=== PATIENT | female | born 1975 | race Caucasian/White ===

== ENCOUNTER 2025-04-08 11:20 | Inpatient (IN) | payer OTHER, SELFPAY ==
[2025-04-08] VITALS (7 sets, daily range): BP systolic 99–164; BP diastolic 59–91; PULSE 65–75; RESP 16–18; TEMP 36.3–36.8; O2SAT 92–98; BMI 36.6
--- NOTE | ~2025-04-08 | US_ITS ---
CLINICAL HISTORY: RUQ pain US abdomen limited Comparison: None provided Findings: The visualized pancreas is normal. Hepatic steatosis. There is no intrahepatic bile duct dilatation. The common duct is 2 mm in diameter. Gallbladder is contracted and filled with stones with rqrp-poyq-jptcum appearance. Wall is top-normal in thickness. There is no sonographic Lee sign. The right kidney is 10.9 cm in length. No ascites. IMPRESSION: Gallbladder is contracted and filled with stones with ykza-tgec-sarkig appearance. No wall thickening or sonographic Lee's sign. This document has been electronically signed by: Manuela Rodriguez MD on 04/08/2025 14:07:42
--- NOTE | ~2025-04-08 | CT_ITS ---
CLINICAL HISTORY: Abdominal pain s p duodenum resection? CT abdomen and pelvis with contrast Comparison: US - US ABDOMEN LIMITED - 04/08/25 13:24 EDT Findings: No consolidation or effusion. Hepatic steatosis. Hepatomegaly measuring 23.5 cm in the craniocaudal dimension. Gallbladder is filled with stones. No distention or biliary duct dilatation. Splenomegaly measuring 16.7 cm in the AP dimension. There is a small accessory splenule. Pancreas and adrenal glands are within normal limits. No hydronephrosis. Symmetric contrast enhancement of the kidneys. Left lower quadrant colostomy. No bowel obstruction, pneumatosis or pneumoperitoneum. No bowel wall thickening. Atrophic uterus. Urinary bladder is within normal limits. No acute fracture. IMPRESSION: 1. Hepatic steatosis with hepatosplenomegaly. 2. Cholelithiasis without gallbladder distention or biliary duct dilatation. 3. Left lower quadrant colostomy. No acute findings of the bowel. This document has been electronically signed by: Manuela Rodriguez MD on 04/08/2025 15:58:52
--- NOTE | ~2025-04-08 | MR_ITS ---
EXAMINATION: MRCP HISTORY: pancreatitis, elevated LFTs ?stones COMPARISON: Correlation is made with abdominal CT and ultrasound examinations dated 04/08/2025. TECHNIQUE: Axial gradient echo in and out of phase T1, axial T2 and fat suppressed T2, and coronal haste T2 with fat saturation images were obtained through the abdomen. 3D MRCP Reconstructed images and thick slab imaging of the biliary tree were obtained. FINDINGS: There is diffuse marked loss of signal intensity within the liver on opposed phase images, consistent with steatosis. There is no intrahepatic biliary ductal dilatation. The gallbladder is filled with calculi. There is no wall thickening or pericholecystic fluid. The common bile duct is normal in caliber. No intraluminal filling defects are identified to suggest choledocholithiasis. The spleen is enlarged. The pancreas has an unremarkable unenhanced appearance. The adrenals and kidneys are unremarkable. No ascites or retroperitoneal lymphadenopathy is identified in the upper abdomen. The visualized bones demonstrate normal marrow signal intensity. MR/MR MRCP IMPRESSION: 1. Cholelithiasis without evidence of choledocholithiasis 2. Hepatosplenomegaly and hepatic steatosis. Electronically signed by: Yaya Rabago MD 04/09/2025 01:00 PM EDT
--- NOTE | 2025-04-08 11:32 | ED_ITS ---
HPI - General Adult General Chief complaint: Abdominal Pain Stated complaint: Abd pain radiating to the back Time Seen by Provider: 04/08/25 13:38 Source: patient and family Mode of arrival: ambulatory Limitations: no limitations History of Present Illness ED Provider: DR. Cardenas HPI narrative: 49-year-old female history of rectal cancer, s/p 2 submucosal lesion removed from a duodenum via GERD done at [facility]. Patient presented with 2 days of upper abdominal pain, fullness in the upper abdomen, burping with a metallic taste burp, patient declined alcohol use, declined any trauma to the abdomen, feels nauseous with no vomiting. Colostomy tube is functioning draining both fecal material with no blood in the and gas. Related Data Allergies Allergy/AdvReac Type Severity Reaction Status Date / Time No Known Allergies Allergy Verified 04/08/25 11:35 Review of Systems 2 Review of Systems: All other systems are reviewed and are negative Constitutional: Reports as per HPI and Reports no additional constitutional complaints Eyes: Reports as per HPI and Reports no additional eye complaints Reports system reviewed and no additional complaints, except as documented Cardiovascular: Reports as per HPI and Reports no additional cardiovascular complaints Respiratory: Reports as per HPI and Reports no additional respiratory complaints Gastrointestinal: Reports as per HPI and Reports no additional gastrointestinal complaints Genitourinary: Reports no additional female genitourinary complaints Musculoskeletal: Reports no additional musculoskeletal complaints Skin/Breast: Reports system reviewed and no additional complaints, except as docu Psychiatric: Reports no additional psychiatric complaints Endocrine: Reports no additional endocrine complaints Hematologic/Lymphatic: Reports no additional hematologic/lymphatic complaints Allergic/Immunologic: Reports no additional allergic/immunologic complaints Reports system reviewed and no additional complaints, except as documented and Reports Abnormal speech present [facility] Social History Social History Advance Directives: No Advance Directives Information Provided: Yes Physical Exam ED Vital Signs: Vital Signs - 24 hr 04/08/25 11:32 04/08/25 14:19 04/08/25 14:37 Temperature 97.3 F 97.8 F Pulse Rate 75 74 Respiratory Rate 18 16 17 Blood Pressure 164/91 H 135/85 Pulse Oximetry 98 94 Oxygen Delivery Method Room Air Room Air BMI result Body Mass Index 36.6 Vital signs have been reviewed and appear to be correct. Blood pressure elevated. Heart rate normal. Respiratory rate normal. Temperature normal. Oxygen saturation normal. Appearance: Alert. Oriented X3. No acute distress. Head: Normal external exam. Normocephalic. Atraumatic. No Roth signs noted. No raccoon eyes noted Eyes: PERRLA. EOMI. Conjunctiva and sclera normal. Eyelids normal. ENT: TM's Normal. Pharynx normal. Uvula midline. Moist mucous membranes. No trismus noted. No drooling noted. No muffled voice noted. Neck: Normal inspection. Neck supple. FROM. No adenopathy. Thyroid Normal. No meningeal signs. No neck mass noted. CVS: Normal heart rate and rhythm. Heart sound normal. No murmurs noted. Pulses normal throughout. Respiratory: No respiratory distress. Painless inspiration. Breath sounds normal. No wheezes/rales/rhonchi noted. Chest nontender. No accessory muscle usage noted or decreased air movement noted. Abdomen: Soft and nontender. Bowel sounds normal in all 4 quadrants. No distention noted. No organomegaly noted. No visible injury noted. Back: No CVA tenderness. Full range of motion noted. Skin: Skin warm and dry. Normal skin color. Normal skin turgor. No rashes/lesions/lacerations noted. Extremities: No lower extremity edema. Extremities exhibit normal range of motion. Extremities nontender. Neuro: Oriented X 3. Cranial nerve exam: II-XII are grossly intact No motor deficit. No sensory deficit. Reflexes normal. Course Course Course Narrative: This is a rapid medical exam performed by Santi Pepper NP: Additional HPI, ROS, PE not included below will be deferred to primary provider. Patient is a 49-year-old female presenting to the ED with complaint of abdominal pain following a recent duodenal resection done at [facility] on 03/28. notes that she had clips placed during surgery, has a card. Also has ostomy, states stool has been foul smelling and looser than normal. Complaining of nausea, pain. Denies any hematochezia or melena in ostomy, denies vomiting. States pain is to RUQ as well as back but is not radiating. 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 Plan: labs, UA, will defer imaging to primary provider Reevaluation(s) Reevaluation #1: 1. Nonalcoholic pancreatitis. 2. Cholelithiasis without acute cholecystitis or evidence of choledocholithiasis. 3. Admit for IV hydration, pain control. 4. CT abdomen and pelvis reveals stranding around the pancreas indicated for acute pancreatitis, await for official radiology reading on the CT. Time: 15:48 Medications Administered Discontinued Medications Generic Name Dose Route Start Last Admin Trade Name Freq PRN Reason Stop Dose Admin Al Hydroxide/Mg Hydroxide 30 ml 04/08/25 14:08 04/08/25 14:35 Magnesium Hydrox/Alum Hydrox 30 Ml Oral.Susp PO 04/08/25 14:09 30 ml ONCE ONE Administration Famotidine 20 mg 04/08/25 14:08 04/08/25 14:36 Famotidine/Pf 20 Mg/2 Ml Vial IVPUSH 04/08/25 14:09 20 mg ONCE ONE Administration Hydromorphone HCl 1 mg 04/08/25 14:08 04/08/25 14:37 Hydromorphone Hcl 1 Mg/Ml Syringe IVPUSH 04/08/25 14:09 1 mg ONCE ONE Administration Protocol Lactated Ringer's 1,000 mls @ 999 mls/hr 04/08/25 14:15 04/08/25 14:36 Lr IV 04/08/25 15:15 999 mls/hr .Q1H1M WALT Administration Iohexol 100 ml 04/08/25 14:43 04/08/25 14:43 Iohexol 350 Mg/Ml 100 Ml Infus..Btl IV 04/08/25 14:44 85 ml ONCE ONE Administration Ondansetron HCl 4 mg 04/08/25 14:08 04/08/25 14:36 Ondansetron Hcl 4 Mg/2 Ml Vial IVPUSH 04/08/25 14:09 4 mg ONCE ONE Administration Medical Decision Making Lab Data 04/08/25 12:04 04/08/25 12:04 Labs: Lab Results 04/08/25 04/08/25 Range/Units 12:04 14:29 WBC 3.5 L (4.8-10.8) X10*3/uL RBC 5.20 (4.20-5.50) X10*6/uL Hgb 12.2 (12.0-16.0) g/dl Hct 37.1 (37.0-47.0) % MCV 71.3 L (80.0-98.0) fL MCH 23.5 L (27.0-33.0) pg MCHC 32.9 (31.0-35.0) g/dl RDW 15.6 (11.0-16.0) % Plt Count 167 (160-400) X10*3/uL MPV 9.0 L (9.4-12.3) fL Immature Gran % (Auto) 0.3 (0.0-0.4) % Neut % (Auto) 83.6 H (45-73) % Lymph % (Auto) 6.9 L (20-40) % [place] % (Auto) 7.2 (2-11) % Eos % (Auto) 1.4 (0-4) % Baso % (Auto) 0.6 (0-2) % Lymph # (Auto) 0.2 L (1.2-4.9) X10*3/uL [place] # (Auto) 0.3 (0.1-1.2) X10*3/uL Eos # (Auto) 0.1 (0.0-0.4) X10*3/uL Baso # (Auto) 0.0 (0.0-0.2) X10*3/uL Abs Immat Gran (auto) 0.01 (0.00-0.03) X10*3/uL Absolute Neuts (auto) 2.9 (2.0-8.3) x10*3/uL Absolute Nucleated RBC 0.000 (0.0-0.012) X10*3/uL Nucleated RBC % (auto) 0.0 (0.0-0.2) /100WBC PT 11.6 (10.9-12.4) SEC INR 1.0 (0.9-1.1) Sodium 141 (135-145) mmol/L Potassium 3.8 (3.3-5.1) mmol/L Chloride 105 (96-108) mmol/L Carbon Dioxide 27 (22-29) mmol/L Anion Gap 13 (12-20) BUN 8 L (9-16) mg/dL Creatinine 0.60 (0.5-1.4) mg/dL Estim Creat Clear Calc 140.4 Estimated GFR > 60 Random Glucose 95 (60-115) mg/dL Lactic Acid 1.0 (0.5-2.0) mmol/L Calcium 10.0 (8.4-10.2) mg/dL Magnesium 2.1 (1.6-2.6) mg/dL Total Bilirubin 2.8 H (0.0-1.0) mg/dL AST 709 H (5-31) U/L ALT 480 H (0-31) U/L Alkaline Phosphatase 282 H (39-117) U/L Total Protein 7.9 (6.5-8.0) g/dL Albumin 4.9 (3.5-5.0) g/dL Triglycerides 85 (<150) mg/dL Cholesterol 167 (<200) mg/dL LDL Cholesterol, Calc 104 H (<100) mg/dL HDL Cholesterol 46 (>40) mg/dL Lipase 2540 H (8-78) U/L Urine Color Dark Yellow Urine Appearance Clear Urine pH 5.5 (5.0-9.0) Ur Specific [place] 1.015 (1.005-1.025) Urine Protein Negative (Neg-Trace) mg/dL Urine Glucose (UA) Negative (Negative) mg/dL Urine Ketones Negative (Negative) mg/dL Urine Blood Negative (Negative) Urine Nitrite Negative (Negative) Ur Leukocyte Esterase Trace H (Negative) Urine RBC 0-2 (0-2) /HPF Urine WBC 0-5 (0-5) /HPF Ur Squamous Epith Cells 0-2 (0-2) /HPF Urine Bacteria None Seen (None Seen) Hyaline Casts 0-2 (0-2) /LPF Urine Test NEGATIVE (NEGATIVE) Discharge Plan Discharge Clinical Impression: Acute pancreatitis Patient Disposition: Admitted As Inpatient Print Language: Norwegian
[2025-04-08 12:10] LABS: MANUAL DIFF FLAG NO
[2025-04-08 12:12] LABS: Appearance Urine Clear; Glucose Urine UA Negative (Negative); Hematocrit 37.1 % (37.0-47.0); Hemoglobin 12.2 g/dl (12.0-16.0); Imm Gran Abs Auto 0.01 X10*3/uL (0.00-0.03); Imm Gran Pct Auto 0.3 % (0.0-0.4); Lymphocytes Absolute Auto 0.2 X10*3/uL (1.2-4.9); Mean Corpuscular HGB Conc 32.9 g/dl (31.0-35.0); Mean Corpuscular Hemoglobin 23.5 pg (27.0-33.0); Mean Corpuscular Volume 71.3 fL (80.0-98.0); NRBC Abs Auto 0.000 X10*3/uL (0.0-0.012); NRBC Pct Auto 0.0 /100WBC (0.0-0.2); PH 5.5 (5.0-9.0); Platelet Count 167 X10*3/uL (160-400); Red Blood Count 5.20 X10*6/uL (4.20-5.50); Specific Gravity - Urine 1.015 (1.005-1.025); UMIC TRIGGER UACC YES; White Blood Count 3.5 X10*3/uL (4.8-10.8)
[2025-04-08 12:17] LABS: INTERNATIONAL NORM RATIO 1.0 (0.9-1.1); Prothrombin Time 11.6 SEC (10.9-12.4)
[2025-04-08 12:34] LABS: Alanine Aminotransferase 480 U/L (0-31); Albumin Level 4.9 g/dL (3.5-5.0); Alkaline Phosphatase 282 U/L (39-117); Anion Gap 13 (12-20); Aspartate Amino Transferase 709 U/L (5-31); Blood Urea Nitrogen 8 mg/dL (9-16); Calcium 10.0 mg/dL (8.4-10.2); Carbon Dioxide 27 mmol/L (22-29); Chloride 105 mmol/L (96-108); Creatinine Clr Calc Pharmacy 140.4; Estimated Glomerular Filt Rate > 60; Magnesium 2.1 mg/dL (1.6-2.6); Potassium 3.8 mmol/L (3.3-5.1); Sodium 141 mmol/L (135-145); Total Protein 7.9 g/dL (6.5-8.0)
[2025-04-08 12:47] LABS: Lipase 2540 U/L (8-78)
[2025-04-08 13:49] LABS: UPreg QC Valid YES
[2025-04-08] MEDS: Magnesium Hydrox/Alum Hydrox 30 ML ORAL.SUSP PO (14:35)
[2025-04-08] MEDS: Lactated Ringers 1,000 ML 999 ML IV (14:36)
--- OUTSIDE RECORDS SUMMARY | 2025-04-08 14:39 | XMS_ITS | Clinical Summary ---
Author Organization [facility] Address [address] [place] [address] Phone Care Team Providers Care Relief Map Modeler Name Role Phone Charly Garcia MD Primary Care Provid er Carla Sibley MD [facility] [phone] Allergies Active Allergy Reactions Criticality Noted Date Comments Other 02/07/2007 Medications sertraline (ZOLOFT) 50 MG tablet 100 mg. SERTRALINE 50 MG TABLET; Dose: 75 MG; Form: Take 1.5 TABLET; Route: PO; Frequency: QD; Directions: Not available; Details: Dispense: Tablet(s); Taking; Status: Active; Source: CARLA SIBLEY M.D.; Date: 08/30/2012 3 Active cetirizine (ZYRTEC) 10 MG tablet ZYRTEC (CETIRIZINE) 10 MG TABLET; Dose: 10 MG; Form: Take 1 TABLET; Route: PO; Frequency: QD; Directions: Not available; Details: Dispense: Tablet(s); Taking; Status: Active; Source: CARLA SIBLEY M.D.; Date: 08/30/2012 3 Active hydrOXYchloroQU INE (PLAQUENIL) 200 mg tablet TAKE 1 TABLET TWICE A DAY (SCHEDULE APPOINTMENT FOR FURTHER REFILLS) 60 tablet 1 Active cholecalciferol , vitamin D3, (VITAMIN D3) 25 mcg (1,000 unit) capsule 0 Active cyanocobalamin, vitamin B-12, 1,000 mcg/mL Kit 0 Active folic acid 0.8 mg Cap 0 Active cetirizine (ZYRTEC) 10 MG tablet Take 10 mg by mouth. Active hydroxychloroqu ine (PLAQUENIL) 200 mg tablet Take 200 mg by mouth. Active omeprazole (PRILOSEC) 20 MG capsule Take 1 capsule (20 mg total) by mouth 2 (two) times a day. 120 capsule 5 05/27/20 25 Active Active Problems Problem Noted Date Diagnosed Date Adenocarcinoma of rectum 01/01/2025 Malignant tumor of rectum 03/07/2014 Overview (09/08/2014): Rectal cancer Carpal tunnel syndrome 01/27/2013 Overview (09/08/2014): Carpal tunnel syndrome Disorder of patellofemoral joint 01/27/2013 Overview (09/08/2014): Patellofemoral disorder Uncoded ? Systemic lupus erythematosus 3 Overview (09/08/2014): ? Systemic lupus erythematosus Generalized osteoarthrosis of hand 05/10/2007 Overview (01/01/2025): Sees Dr Young, rheum Off arthritis meds during IMO update Rheumatoid arthritis 05/10/2007 Overview (01/01/2025): Sees Dr Young, rheum Off arthritis meds during IM update Allergic rhinitis 12/03/2005 Depressive disorder 12/03/2005 Overview (01/01/2025): DEPRESSION/anxiety Encounters Date Type Department Care Team Description 5 11:45 AM EDT - 5 12:45 PM EDT Surgery [facility] Endoscopy Department [address] [place] [address] Margarita Gonzales MD, PhD ESOPHAGOGASTRODUODENOSCOPY WITH ENDOSCOPIC MUCOSAL RESECTION Duodenal adenoma 5 11:38 AM EDT Anesthesia Event [facility] Endoscopy Department [address] [place] [address] Eddie Jc MD Song, Margaret, ARIADNA 5 10:18 AM EDT - 5 1:02 PM EDT Hospital Encounter [facility] Endoscopy Department [address] [place] [address] aMrgarita Gonzales MD, PhD Discharge Disposition: Home or Self Care 5 Orders Only [address] [address] Margarita Gonzales MD, PhD 5 Procedure Pass [facility] Endoscopy Department [address] [place] [phone] [address] [address] Miracle Parnell PA-C 5 Orders Only [address] [address] Miracle Parnell PA-C Duodenal adenoma (Primary Dx) 5 4:13 PM EDT Anesthesia Event [facility] Endoscopy Department [address] [place] [address] Prema Austin MD, PhD 5 3:15 PM EDT - 5 4:00 PM EDT Surgery [facility] Endoscopy Department [address] [place] [address] Andrew Smalls MD, PhD UPPER ENDOSCOPIC ULTRASOUND- duodenal adenoma asssess for ESD dr gonzales to come in room 5 12:52 PM EDT - 5 5:31 PM EDT Hospital Encounter [facility] Endoscopy Department [address] [place] [address] Camilo Godinez MD Discharge Disposition: Home or Self Care 5 Procedure Pass [facility] Endoscopy Department [address] [place] [address] from Last 3 Months Immunizations Immunization Administration Dates Next Due Influenza, Unspecified Formulation 06/25(Deferred: Other - , Ordered By: [id number]),05/03/2013,03/30/2012 Pneumococcal, Unspecified Formulation (Deferred: Other - , Ordered By: [id number]) Social History Tobacco Use Types Packs/Day Years Used Date Smoking Tobacco: Never Smokeless Tobacco: Never Alcohol Use Standard Drinks/Week Comments Yes 0 (1 standard drink = 0.6 oz pur e alcohol) Education Answer Date Recorded Are you interested in more education? Not on hilton e 11/13/2022 Are you concerned about learning? Not on file 11/13/2022 No 11/13/2022 No 11/13/2022 Digital Access Answer Date Recorded No 12/13/2022 No 12/13/2022 Reliable internet access at home? Not on file 12/13/2022 Device with a working camera? Not on file Comments No Sex and Gender Information Value Date Recorded Sex Assigned at Female 06/01/2019 7:45 AM EST Legal Sex Female 11:30 AM EDT Gender Identity Female 06/01/2019 7:45 AM EST Sexual Orientation Straight 06/01/2019 7: 45 AM EST Last Filed Vital Signs Vital Sign Reading Time Taken Comments Blood Pressure 133/83 03/28/2025 12:50 PM EDT Pulse 72 03/28/2025 12:55 PM EDT Temperature 36.2 C (97.1 F) 03/28/2025 12:26 PM EDT Respiratory Rate 11 03/28/2025 12:45 PM EDT Oxygen Saturation 94% 03/28/2025 12:50 PM EDT Inhaled Oxygen Concentration - - Weight 104.3 kg (230 lb) 01/18/2025 2:50 PM EDT Height 167.6 cm (5' 6 ) 01/18/2025 2:50 PM EDT Body Mass Index 37.12 01/18/2025 2:50 PM EDT Plan of Treatment Health Maintenance Due Date Last Done Comments LIPID PANEL 1977 DEPRESSION SCREENING 1989 HIV ONE-TIME SCREENING (18-65 YEARS) 1995 PNEUMOCOCCAL VACCINES (0-49 years) (1 of 2 - PCV) 1996 PAP SMEAR 1998 MAMMOGRAM 2017 SCREENING FOR DIABETES 03/09/2020 03/09/2017 COLOGUARD 2022 COLONOSCOPY 2022 COLORECTAL CANCER SCREENING 2022 FIT TEST 2022 FOBT 2022 SIGMOIDOSCOPY 2022 VIRTUAL COLONOSCOPY 2022 INFLUENZA VACCINE (#1) 2025 , 05/11/2023, 05/13/2022, Additional history exists COVID-19 VACCINE ( season) 2025 07/26/2021, 08/23/2020, 08/02/2020 Adult Td,Tdap Booster 06/11/2030 06/11/2020, 006 HEPATITIS C SCREENING Completed 01/04/2017 SMOKING STATUS SCREENING (Once After 26 Yrs) Completed 03/28/2025 HEPATITIS A VACCINES Aged Out No long er eligible based on patient's age to complete this topic HIB VACCINES Aged Out No longer eligi ble based on patient's age to complete this topic MENINGOCOCCAL VACCINES (ACWY) Aged Out No longer eligible based on patient's age to complete this topic MENINGOCOCCAL VACCINES (B) Aged Out N o longer eligible based on patient's age to complete this topic Medical Devices Implanted Type Area Open Winder Device Identifier Shelf Expiration Date Model / Serial / Lot Clip Hemostasis 360deg 235cm Resolution 360 Latex Free 2.8mm Channel Bx/20ea - [id number] Implanted:Qty: 2 on 03/28/2025 by Margarita Gonzales MD, PhD at [facility] [employer] [id number] 01/09/2028 [id number] / [id number] / [id number] Procedures Procedure Name Priority Date/Time Associated Diagnosis Comments ENDOSCOPY PROCEDURE 03/28/2025 1 1:24 AM EDT MA EGD TRANSORAL ENDOSCOPIC MUCOSAL RESECTION 03/28/2025 11:23 AM EDT Duodenal adenoma Special Needs 01/22 prep sent to pg.KATIA AH MAC 75F Same day ANATOMIC PATHOLOGY Routine 03/28/2025 12 :00 AM EDT OUTSIDE PROCEDURE 03/23/2025 MA EDG US EXAM SURGICAL ALTER STOM DUODENUM/JEJUNUM 01/18/2025 4:17 PM EDT Duodenal adenoma Special Needs 7/2 pt confirmed.KATIA 01/01 prep sent to [facility] on day is on campus he is to go in room, MAC 75F same day ENDOSCOPY PROCEDURE 01/18/2025 9 :54 AM EDT ANATOMIC PATHOLOGY Routine 01/18/2025 12 :00 AM EDT OUTSIDE PATHOLOGY 01/11/2025 OUTSIDE PROCEDURE 01/11/2025 OUTSIDE PATHOLOGY 01/09/2025 OUTSIDE PROCEDURE 01/09/2025 HEPATITIS C ANTIBODY, QUALITATIVE Routine 01/04/2017 11:08 AM EDT Encounter for long-term (current) use of high-risk medication from Last 3 Months or Most Recently Relevant to Health Maintenance Results * ENDOSCOPY PROCEDURE (03/28/2025 11:24 AM EDT) 03/28/2025 11:2 4 AM EDT Narrative Transcriptions Margarita Gonzales MD, PhD - 03/28/2025 11:24 AM EDT [facility] Gastroenterology Patient Name: Shellie Avila Procedure Date: 03/28/2025 11:24 AM Date of : 1975 Admit Type: Outpatient Age: 49 Room: 6 Gender: Female Note Status: Finalized Attending MD: MARGARITA GONZALES MD, Instrument Name: [id number] Procedure: Upper GI endoscopy with Endoscopic Mucosal Resection (EMR) Indications: Therapeutic procedure, For therapy of precancerous lesions of the duodenum Patient Profile: This is a 49 year old female. Refer to note in patient chart for documentation of history and physical. Providers: MARGARITA GONZALES MD, Jazmyne Lee RN Referring MD: Dwayne Brady (Referring MD) Medicines: Monitored Anesthesia Care Complications: No immediate complications. Procedure: Pre-Anesthesia Assessment: - Prior to the procedure, a History and Physical was performed, and patient medications, allergies and sensitivities were reviewed. The patient's tolerance of previous anesthesia was reviewed. - The risks and benefits of the procedure and the sedation options and risks were discussed with the patient. All questions were answered and informed consent was obtained. - ASA Grade Assessment: I - A normal, healthy patient. After informed consent was obtained, the endoscope was passed under direct vision. Throughout the procedure, the patient's blood pressure, pulse, and oxygen saturations were monitored continuously. The Endoscope was introduced through the mouth, and advanced to the third part of duodenum. The upper GI endoscopy was accomplished without difficulty. The patient tolerated the procedure well. Findings: The examined esophagus was normal. The entire examined stomach was normal. A single 35 mm sessile polyp with no bleeding was found in the second portion of the duodenum. Preparations were made for mucosal resection (EMR). BlueBoost was injected to raise the lesion. Snare mucosal resection was performed. Resection and retrieval were complete. Resected tissue margins were examined and clear of polyp tissue. Coagulation for bleeding prevention using Ensure Grasper was successful. Coagulation for tissue destruction using argon plasma at 0.8 liters/minute and 30 stark was successful. To prevent bleeding after mucosal resection, two hemostatic clips were successfully placed (MR conditional). Clip digital account director: [employer]. There was no bleeding at the end of the procedure. Estimated blood loss was minimal. Impression: - Normal esophagus. - Normal stomach. - A single duodenal polyp. Resected and retrieved. Treated with argon plasma coagulation (APC). Clips (MR conditional) were placed. Clip digital account director: [employer]. - Mucosal resection (EMR) was performed. Resection and retrieval were complete. Recommendation: - Clear liquid diet today. - Full liquid diet for 1 day. - Soft diet for 5 days. - Use Prilosec (omeprazole) 20 mg PO BID for 8 weeks. Attending Participation: I personally performed the entire procedure. Margarita Gonzales MD [id number] MARGARITA GONZALES MD 03/28/2025 12:29:11 PM Number of Addenda: 0 Note Initiated On: 03/28/2025 11:24 AM us Dwayne Brady MD GI PROCEDURE ORDERABLES Final R esult * Anatomic Pathology (03/28/2025 12:00 AM EDT) Only the most recent of2 resultswithin the time period is included. 03/28/2025 03/29/2025 [facility] - 04/03/2025 2:11 PM EDT CASE: [id number] PATIENT: SHELLIE AVILA Date: 1975 Sex: Female [facility] Department of Pathology [address] [place], [place] [address]IA License No.: [id number] Time Study Technician: Dr. Moo Mcdowell M.D., Ph.D. Physician: MARGARITA GONZALES MD, PhD Procedure Date: 03/28/2025 Resident: Noemi Cristina MD Pathologist: Lalit Dupree M.D., Ph.D. PATHOLOGIC DIAGNOSIS: A. DUODENAL POLYP EMR: Fragments of duodenal adenoma. CLINICAL DATA: History: Duodenal adenoma. Operation: Esophagogastroduodenoscopy with endoscopic mucosal resection duodenal adenoma. Operative Findings: None provided. Clinical Diagnosis: None provided. TISSUE SUBMITTED: A/1. Duodenal polyp EMR GROSS DESCRIPTION: The specimen is received in 1 part, labeled with the patient's name and medical record number. Part A received in formalin labeled Duodenal polyp EMR consists of an aggregate of irregular mary-brown soft tissue (3.5 x 2.2 x 0.6 cm). The specimen is submitted in toto. A1-A3: 4 pieces Dictated by: Sussy Riggins By his/her signature below, the senior physician certifies that he/she personally conducted a microscopic examination ( gross only exam if so stated) of the described specimen(s) and rendered or confirmed the diagnosis(es) related thereto. Final Diagnosis by Lalit Dupree M.D., Ph.D., Electronically signed on Thursday April 03, 2025 at 02:11:04PM us Margarita Gonzales MD, PhD PATHOLOGY ORDERABLES Fin al Result [facility] [address] [place] [address] * Outside Procedure (03/23/2025) us Scanning Interface Provider PROCEDURE/MINOR SURG ICAL PERFORMABLES Final Result * ENDOSCOPY PROCEDURE (01/18/2025 9:54 AM EDT) 01/18/2025 9:54 AM EDT Narrative Transcriptions Andrew Smalls MD, PhD - 01/18/2025 9:54 AM EDT [facility] Gastroenterology Patient Name: Shellie Avila Procedure Date: 01/18/2025 9:54 AM Date of : 1975 Admit Type: Outpatient Age: 49 Room: 7 Gender: Female Note Status: Finalized Attending MD: ANDREW SMALLS MD, Instrument Name: [id number] Procedure: Upper EUS Indications: Duodenal mucosal mass/polyp found on endoscopy Patient Profile: This is a 49 year old female. Refer to note in patient chart for documentation of history and physical. Providers: VIVIEN MCKINLEY RN, ANDREW SMALLS MD Referring MD: Dwayne Brady (Referring MD) Medicines: Monitored Anesthesia Care Complications: No immediate complications. Estimated blood loss: Minimal. Procedure: Pre-Anesthesia Assessment: - See the [facility] pre-procedure note for documentation of the pre-procedure assessment. After obtaining informed consent, the endoscope was passed under direct vision. Throughout the procedure, the patient's blood pressure, pulse, and oxygen saturations were monitored continuously. The Endosonoscope was introduced through the mouth, and advanced to the second part of duodenum. The upper EUS was accomplished without difficulty. The patient tolerated the procedure well. Findings: ENDOSCOPIC FINDING: : The examined esophagus was endoscopically normal. The entire examined stomach was endoscopically normal. A single 50 mm semi-pedunculated polypoid leison with no bleeding was found in the second portion of the duodenum. Biopsies were taken with a cold forceps for histology. ENDOSONOGRAPHIC FINDING: : The esophagus, stomach and duodenum were examined endosonographically. A hypoechoic pedunculated mass was identified endosonographically in the second portion of the duodenum. The mass measured 50 mm by 9 mm in maximal cross-sectional diameter. The lesion extended from the mucosa to the muscularis mucosa. The endosonographic borders were well-defined. There was sonographic evidence suggesting invasion into the deep mucosa (Layer 2). An intact interface was seen between the mass and the adjacent structures suggesting a lack of invasion. No lymph nodes were visualized in the lower paraesophageal mediastinum (level 8L), gastrohepatic ligament (level 18), celiac region (level 20) and perigastric region. Impression: - Normal esophagus. - Normal stomach. - A single duodenal semi-pedunculated polypoid lesion. Biopsied. On EUS this appeared this did not invade into the submucosa (Layer 3) or muscular layer (Layer 4). - No lymph nodes were visualized in the lower paraesophageal mediastinum (level 8L), gastrohepatic ligament (level 18), celiac region (level 20) and perigastric region. Recommendation: - Await path results. - Schedule endoscopic resection with Dr. Gonzales who was present during this case. Attending Participation: I personally performed the entire procedure. ANDREW SMALLS MD 01/18/2025 4:59:13 PM Number of Addenda: 0 Note Initiated On: 01/18/2025 9:54 AM us Dwayne Brady MD GI PROCEDURE ORDERABLES Final R esult * Outside Procedure (01/11/2025) us Scanning Interface Provider PROCEDURE/MINOR SURG ICAL PERFORMABLES Final Result * Outside Pathology (01/11/2025) Only the most recent of2 resultswithin the time period is included. us Scanning Interface Provider PATHOLOGY ORDERABLES Final Result * Outside Procedure (01/09/2025) us Scanning Interface Provider PROCEDURE/MINOR SURG ICAL PERFORMABLES Final Result * Hepatitis C antibody, qualitative (01/04/2017 11:08 AM EDT) Pathologist [facility] HCV Nonreactive Nonreactive [facility] Blood 01/04/2017 11:0 8 AM EDT 01/04/2017 12:33 PM EDT us Carla Sibley MD LAB BLOOD ORDERABLES Final Result [facility] [address] [place] [address] from Last 3 Months or Most Recently Relevant to Health Maintenance Insurance [address] [place], [place] [address] [place], [place] [address] [facility] Advance Directives For more information, please contact: [phone] (9AM - 5PM [facility], Wednesday-Wednesday) Documents on File Type Date Recorded Patient Jumbo Operator Expl anation Serious Illness Care 05/13/2015 10:29 AM communication from [facility] Care Teams Relief Map Modeler Relationship Specialty Start Date End Date Charly Garcia MD [address] [place] [phone] PCP - General 11/22/14 Carla Sibley MD [address] [place] [address] [email or web address] Historical LMR Provider 12/02/14 Additional Source Comments The information contained in this document represents components of the legal health record. It is not the complete legal health record.[facility]
--- OUTSIDE RECORDS SUMMARY | 2025-04-08 14:39 | XMS_ITS | Encounter Summary ---
Author Organization [facility] Address [address] [place] [address] Care Team Providers Care Cross Enterprise Integrator Name Role Phone Charly Garcia MD Primary Care Provider [phone] Encounter Details Date Type Department Care Team (Late st Contact Info) Description 11/30/[address] [facility] - Main Lab [address] [facility] [place] [phone] Andrea Guillen MD [address] [facility] [address] [place] [address] Iron deficiency anemia, unspecified Social History Tobacco Use Types Packs/Day Years Used Date Smoking Tobacco: Never Smokeless Tobacco: Never Alcohol Use Standard Drinks/Week Comments No 0 (1 standard drink = 0.6 oz pur e alcohol) Comments Unknown Sex and Gender Information Value Date Recorded Sex Assigned at Female 07/25/2024 9:01 AM EST Legal Sex Female 12:43 AM EST Gender Identity Female 07/25/2024 9:01 AM EST Sexual Orientation Straight 07/25/2024 9: 01 AM EST documented as of this encounter Plan of Treatment Not on file documented as of this encounter Procedures Procedure Name Priority Date/Time Associated Diagnosis Comments TISSUE EXAM Routine 11/30/2024 Iron deficiency anemia, unspecified documented in this encounter Results * Tissue Exam (11/30/2024) Final Diagnosis A. Small Intestine, Duodenum, second and third part biopsy: - Duodenal mucosa with preserved villi and no specific pathologic changes. - Negative for increased intraepithelial lymphocytes. B. Small Intestine, Duodenum, second part biopsy: - Fragments of tubular adenoma. Note: Multiple additional deeper levels were examined. Please clinically correlate if biopsy is inventory representative of lesion. No carcinoma is identified. Case was reviewed intradepartmental case conference with consensus agreement in the above diagnosis. 12/04/2024 4:22 PM EDT [facility] Clinical Information Iron deficiency anemia R/O Celiac sprue Mass 12/04/2024 4:22 PM EDT [facility] Gross Description A. Small Intestine, Duodenum, second and third part biopsy: Labeled duodenum-second part, third part biopsy . Received in formalin are three soft to rubbery, mary-brown tissue fragments ranging from 0.15 cm to 0.6 cm, in greatest diameters, which are wrapped in paper and submitted in toto in one cassette, three pieces, multiple levels. B. Small Intestine, Duodenum, second part biopsy: Labeled duodenum-second part biopsy mass . Received in formalin is a 1.0 x 0.6 x 0.2 cm aggregate of soft to rubbery, mary-brown tissue fragments, with minimal clotted blood attached, which is wrapped in paper and submitted in toto in one cassette, multiple pieces, multiple levels. Please note: Small tissue fragments may not survive processing. dvb/DG 12/04/2024 4:22 PM EDT [facility] Disclaimer Unless otherwise specified, all tissue is 10% NB formalin fixed and paraffin embedded. 12/04/2024 4:22 PM EDT [facility] Tissue Duodenal structure / Unknown 11/30/2024 11/30/2024 6:15 PM EDT Tissue specimen (specimen) Duodenal structure / Unknown 11/30/2024 11/30/2024 6:15 PM EDT us Andrea Guillen MD LAB PATHOLOGY ORDERABLES Marilu ho Result [facility] [address] [place] [address], documented in this encounter Visit Diagnoses Diagnosis Iron deficiency anemia, unspecified documented in this encounter Care Teams Cross Enterprise Integrator Relationship Specialty Start Date End Date Charly Garcia MD [address] [place] [phone] PCP - General Internal Medicine 07/25/24 documented as of this encounter
--- OUTSIDE RECORDS SUMMARY | 2025-04-08 14:39 | XMS_ITS | Encounter Summary ---
Author Organization [facility] Address [address] [facility] [address] [place] [address] Phone Care Team Providers Care Western Philosophy Professor Name Role Phone Charly Garcia MD Primary Care Provid er Nicolasa Stuart MD Unavailable [phone] Encounter Details Date Type Department Care Team (Late st Contact Info) Description 01/18/2025 Procedure Pass [facility] Endoscopy Department [address] [place] [address] [phone] Social History Tobacco Use Types Packs/Day Years Used Date Smoking Tobacco: Never Smokeless Tobacco: Never Alcohol Use Standard Drinks/Week Comments Never 0 (1 standard drink = 0.6 oz [...] Orientation Straight 06/01/2019 7: 45 AM EST documented as of this encounter Plan of Treatment Not on file documented as of this encounter Visit Diagnoses Not on filedocumented in this encounter Care Teams Western Philosophy Professor Relationship Specialty Start Date End Date Charly Garcia MD [address] [place] [phone] PCP - General 11/22/14 Nicolasa Stuart MD [address] [place] [address] [email or web address] LMR Provider 12/02/14 documented as of this encounter Additional Source Comments The information contained in this document represents components of the legal health record. It is not the complete legal health record.[facility]
--- OUTSIDE RECORDS SUMMARY | 2025-04-08 14:39 | XMS_ITS | Encounter Summary ---
Author Organization [facility] Address [address] [facility] [address] [place] [phone] Phone Care Team Providers Care Recorder Helper Gravity Prospecting Name Role Phone Charly Garcia MD Primary Care Provid er Nicolasa Stuart MD Unavailable [phone] Encounter Details Date Type Department Care Team (Late st Contact Info) Description 03/28/[address] [facility] Endoscopy Department [address] [place] [address] [id number] Social History Tobacco Use Types Packs/Day Years [...] on filedocumented in this encounter Care Teams Recorder Helper Gravity Prospecting Relationship Specialty Start Date End Date Charly Garcia MD [address] [place] [phone] PCP - General 11/22/14 Nicolasa Stuart MD [address] [place] [id number] [email or web address] Historical LMR Provider 12/02/14 documented as of this encounter Additional Source Comments The information contained in this document represents components of the legal health record. It is not the complete legal health record.[facility]
--- OUTSIDE RECORDS SUMMARY | 2025-04-08 14:39 | XMS_ITS | Clinical Summary ---
Author Organization [facility] [address] [facility] Address [address] [place] [address] Phone Care Team Providers Care Cone Cleaner Name Role Phone Charly Garcia MD Primary Care Provider [phone] Allergies Active Allergy Reactions Criticality Noted Date Comments Other 02/07/2007 Seasonal Allergies Medications cetirizine (ZyrTEC) 10 mg tablet Take 10 mg by mouth daily. 1 daily Active hydroxychloroq uine (PLAQUENIL) 200 mg tablet Take 200 mg by mouth daily. 1 in am and 1 in pm Active predniSONE (DELTASONE) 20 mg tablet Take 20 mg by mouth daily. Active sertraline (ZOLOFT) 50 mg tablet Take 75 mg by mouth daily. Active Clenpiq 10 mg-3.5 gram- 12 gram/160 mL solution Take 2 Bottles by mouth See administration instructions. 320 mL Active Active Problems Problem Noted Date Diagnosed Date Breech presentation with problem 09/16 Overview (08/09/2024): Wants c/s Rheumatoid arthritis ([facility] V24, [facility] V28) 05/10/2007 Overview (08/09/2024): Sees Dr Young, rheum Off arthritis meds during IMO [id number] update Allergic rhinitis 12/03/2005 Depressive disorder 12/03/2005 Overview (08/09/2024): DEPRESSION/anxiety Encounters Date Type Department Care Team Description 02/22/2025 Telephone Gastroenterology - [address] [facility] [address] [place] [address] Andrea Guillen MD 01/22/2025 Telephone Endoscopy [address] [place] [address] Andrea Guillen MD from Last 3 Months Immunizations Name Administration Dates Next Due H1N1 Inj Preservative Free 05/15/2009 Influenza trivalent, with pr eservative (Fluzone; Afluria) 6mo and older 04/05/2009 Td Tetanus diptheria (Tdvax) 7yo and older 12/03 Medical History Medical History Date Comments Depressive disorder, not els ewhere classified 12/03/2005 DX:Depressive disorder, not elsewhere classified Allergic rhinitis, cause unspecified 12/03/2005 DX:Allergic rhinitis, cause unspecified Generalized osteoarthrosis, involving hand 05/10/2007 DX:Generalized osteoarthrosi s, involving hand; COMMENT: Sees Dr Young, rheum Unspecified asthma(493.90) DX:Un specified asthma(493.90) Generalized osteoarthrosis, unspecified site DX:Generalized osteoarthrosi s, unspecified site; COMMENT: DX with lupus Anxiety state, unspecified DX:An xiety state, unspecified; COMMENT: related to work Lupus DX:Lupus Family History Medical History Relation Name Comments Diabetes Aunt 1 Breast cancer Aunt 2 maternal Heart attack Aunt 2 Other: m.s Aunt 3 Breast cancer Aunt 4 maternal great aunts Heart attack Father + stints Other cancer Father basal cell skin ca Lung cancer Maternal Grandfather Other cancer Maternal Grandmother non hod gkins lymphoma Other: cancer of breast Mother BRCA negative on tamoxifen Relation Name Status Comments Aunt 1 Aunt 2 Aunt 3 Aunt 4 Brother Alive Father Alive Maternal Grandfather Maternal Grandmother Mother Alive Social History Tobacco Use Types Packs/Day Years [...] Orientation Straight 07/25/2024 9: 01 AM EST Obstetrics History Last Filed Vital Signs Vital Sign Reading Time Taken Comments Blood Pressure - - Pulse - - Temperature - - Respiratory Rate - - Oxygen Saturation - - Inhaled Oxygen Concentration - - Weight 108 kg (237 lb) 10/16/2024 1:47 PM EDT Height 167.6 cm (5' 6 ) 10/16/2024 1:47 PM EDT Body Mass Index 38.25 10/16/2024 1:47 PM EDT Plan of Treatment Health Maintenance Due Date Last Done Comments Breast Cancer Screening 1977 Hepatitis B Vaccines (1 of 3 - 19+ 3-dose series) 1996 Cervical Cancer Screening: Pap Smear 09/12/2016 09/12/2013, 09/12/2013 Depression Screening 07/19/2024 Social Influencers of Health Screening 07/25/2024 COVID-19 Vaccine ( - season) 2025 07/26/2021, 08/23/2020, 08/02/2020 Influenza Vaccine (#1) 2025 , 05/11/2023, 05/13/2022, Additional history exists DTaP,Tdap,and Td Vaccines (3 - Td or Tdap) 06/11/2030 06/11/2020, 12/03/2005 Colorectal Cancer Screening: Colonoscopy 11/30/2034 11/30/2024, 07/09/2021, 04/27/2018 RSV Immunization Adult Patients (1 - 1-dose 75+ series) 2052 HIV Screening Completed 02/25/2009 Hepatitis C Screening Completed 01/04/2017 HIB Vaccines Aged Out No longer eligi ble based on patient's age to complete this topic HPV Vaccines Aged Out No longer eligi ble based on patient's age to complete this topic Hepatitis A Vaccines Aged Out No long er eligible based on patient's age to complete this topic IPV Vaccines Aged Out No longer eligi ble based on patient's age to complete this topic MMR Vaccines Aged Out No longer eligi ble based on patient's age to complete this topic Meningococcal ACWY Vaccine Aged Out N o longer eligible based on patient's age to complete this topic Meningococcal B Vaccine Aged Out No l onger eligible based on patient's age to complete this topic Pneumococcal Vaccine: Pediatrics (0 to 5 Years) and At-Risk Patients (6 to 49 Years) Aged Out No longer eligible based on patient's age to complete this topic RSV Immunization Patients Under 20 months Aged Out No longer eligible based on patient's age to complete this topic Varicella Vaccines Aged Out No longer eligible based on patient's age to complete this topic Procedures Procedure Name Priority Date/Time Associated Diagnosis Comments EXTERNAL COLONOSCOPY REPORT Routine 11/30/2024 9:25 AM EDT HPV Routine 09/12/2013 HIV SCREENING Routine 02/25/2009 from Last 3 Months or Most Recently Relevant to Health Maintenance Results * External Colonoscopy Report (11/30/2024 9:25 AM EDT) Anatomical Region Laterality Modality Endoscopy Historical Provider GI~PROCEDURE ORDERABLES F inal Result * Cervical Cancer Screening: HPV (09/12/2013) Cervical Cancer Screening: HPV negative, abstracted Historical Provider HEALTH MAINTENANCE Final Result * HIV Screening (02/25/2009) HIV Screening abstracted Historical Provider HEALTH MAINTENANCE Final Result from Last 3 Months or Most Recently Relevant [place] [id number] [facility] [address] [place] [address] Care Teams Cone Cleaner Relationship Specialty Start Date End Date Charly Garcia MD [address] [facility] [address] [place] [phone] PCP - General Internal Medicine 07/25/24
--- OUTSIDE RECORDS SUMMARY | 2025-04-08 14:40 | XMS_ITS | Encounter Summary ---
Author Organization [facility] Address [address] [place] [phone] Phone Care Team Providers Care Winch Operator Name Role Phone Charly Garcia MD Primary Care Provid er Ramesh Alvarez MD Unavailable [phone] Nicolasa Stuart MD Unavailable [phone] Encounter Details Date Type Department Care Team (Late st Contact Info) Description 11/24/2016 Transcribe Orders [facility] [address] [address] [address] [place] [id number] [email or web address] Social History Tobacco Use Types Packs/Day Years Used Date Smoking Tobacco: Never Comments Unknown Sex and Gender Information Value Date Recorded Sex Assigned at Female 06/01/2019 7:45 AM EST Legal Sex Female 11:30 AM EDT Gender Identity Female 06/01/2019 7:45 AM EST Sexual Orientation Straight 06/01/2019 7: 45 AM EST documented as of this encounter Plan of Treatment Not on file documented as of this encounter Results * XR Lower Extremity Outside (No Interpretation) (11/24/2016 12:00 AM EDT) Narrative KADEH - 11/24/2016 7:43 AM EDT This study is for PACS storage only and not for interpretation. us Nicolasa Stuart MD IMG OUTSIDE IMAGING W/OUT INTERPRETATION Final Result [facility] documented in this encounter Visit Diagnoses Not on filedocumented in this encounter Care Teams Winch Operator Relationship Specialty Start Date End Date Charly Garica MD [address] [facility] [address] [place] [address] PCP - General 11/22/14 Ramesh Alvarez MD [address] [place] [address] [email or web address] Historical LMR Provider 12/02/14 07/26/21 Nicolasa Stuart MD [address] [place] [address] [email or web address] Historical LMR Provider 12/02/14 documented as of this encounter Additional Source Comments The information contained in this document represents components of the legal health record. It is not the complete legal health record.[facility]
[2025-04-08] MEDS: iohexoL 350 MG/ML 100 ML INFUS..BTL IV (14:43)
[2025-04-08 15:03] LABS: Cholesterol 167 mg/dL (<200); HDL Cholesterol 46 mg/dL (>40); Triglycerides 85 mg/dL (<150)
--- NOTE | 2025-04-08 16:31 | PHA.MEDREC ---
Addendum entered by Radha Alonso RPh 04/08/25 16:38: MED REC REVIEWED BY [facility] Original Note: Pharmacy Consult ? Medication Reconciliation Pharmacy has completed the medication reconciliation. Patient was able to confirm all of her medications. Patient had all of her morning medications today.
--- NOTE | 2025-04-08 16:39 | P.HPHOSP_ITS ---
History of Present Illness Date of Service: 04/08/25 Attending physician on admission: Nichole Watson Chief Complaint: abdominal pain This is a 49-year-old female who presents to the emergency department with abdominal pain. Patient states that yesterday at 01:00 she started having epigastric abdominal pain with radiation through to her back which felt like burning in nature. She has associated nausea, no vomiting. Patient recently had an endoscopic submucosal dissection of a duodenal mass at [facility] on March 28. She reports no pain following the procedure and was able to tolerate diet starting 2 days after the procedure. Today in the emergency department her lipase was 2540, AST 709, ALT 480. CT scan shows hepatic steatosis with hepatosplenomegaly, cholelithiasis without gallbladder distention. There is no biliary duct dilation. Abdominal ultrasound shows gallbladder which is contracted and filled with stones with no wall thickening or sonographic Lee's sign. The case was discussed with General surgery on- call who did not feel that the gallstones were causing the pancreatitis. Review of Systems 2 Review of Systems: Yes all other systems are reviewed and are negative Constitutional: Constitutional: Denies chills and Denies fever(s) Cardiovascular: Cardiovascular: Denies chest pain, Denies palpitations and Denies dyspnea Respiratory: Respiratory: Denies cough and Denies dyspnea Gastrointestinal: Gastrointestinal: Reports abdominal pain, Reports nausea and Denies vomiting Endocrine: Endocrine: Denies palpitations [facility] Medical History Duodenal mass Rectal cancer Social History Advance Directives: No Advance Directives Information Provided: Yes Meds Allergies Allergy/AdvReac Type Severity Reaction Status Date / Time No Known Allergies Allergy Verified 04/08/25 11:35 Home Medications ?Medication ?Instructions ?Recorded ?Confirmed ?Last Taken ?Type cetirizine 10 mg tablet (Zyrtec) 10 mg PO BEDTIME 03/2004/08/25 04/07/25 History lorazepam 0.5 mg tablet 0.5 mg PO TID anxiety 04/08/25 04/08/25 History omeprazole 20 mg capsule,delayed 20 mg PO BID 04/08/25 04/08/25 04/08/25 History release sertraline 100 mg tablet 200 mg PO DAILY 04/08/2504/08/25 History Physical Exam 2 Vital Signs and Narrative: Vital Signs: Last Vital Signs Temp 98.3 F 04/08/25 16:30 Pulse 67 04/08/25 16:30 Resp 16 04/08/25 16:30 BP 106/72 04/08/25 16:30 Pulse Ox 92 04/08/25 16:30 O2 Del Method Room Air 04/08/25 16:30 BMI result Body Mass Index 36.6 Const: General: cooperative, comfortable, no acute distress, alert and awake Nutritional Appearance: average body habitus Orientation/consciousness: p atient oriented x3 Resp: Effort & Inspection: normal respiratory effort, able to speak in complete sentences, no respiratory distress and no use of accessory muscles A uscultation: clear to auscultation bilaterally Cardio: Rate: regular rate GI: Other: epigastric tenderness Palpation (GI): Soft to palpation Neuro: General: patient oriented x3, moves all extremities and CN's II-XI intact bilaterally Extrem: General: No pedal edema Results Labs 04/08/25 12:04 04/08/25 12:04 Labs: Laboratory Results - last 24 hr 04/08/25 04/08/25 12:04 14:29 MCV 71.3 L MCH 23.5 L MCHC 32.9 RDW 15.6 Plt Count 167 MPV 9.0 L Immature Gran % (Auto) 0.3 Neut % (Auto) 83.6 H Lymph % (Auto) 6.9 L Sioux % (Auto) 7.2 Eos % (Auto) 1.4 Baso % (Auto) 0.6 Lymph # (Auto) 0.2 L [place] # (Auto) 0.3 Eos # (Auto) 0.1 Baso # (Auto) 0.0 Abs Immat Gran (auto) 0.01 Absolute Neuts (auto) 2.9 Absolute Nucleated RBC 0.000 Nucleated RBC % (auto) 0.0 PT 11.6 INR 1.0 Anion Gap 13 Estim Creat Clear Calc 140.4 Estimated GFR > 60 Random Glucose 95 Lactic Acid 1.0 Calcium 10.0 Magnesium 2.1 Total Bilirubin 2.8 H AST 709 H ALT 480 H Alkaline Phosphatase 282 H Total Protein 7.9 Albumin 4.9 Triglycerides 85 Cholesterol 167 LDL Cholesterol, Calc 104 H HDL Cholesterol 46 Lipase 2540 H Urine Color Dark Yellow Urine Appearance Clear Urine pH 5.5 Ur Specific Gerald 1.015 Urine Protein Negative Urine Glucose (UA) Negative Urine Ketones Negative Urine Blood Negative Urine Nitrite Negative Ur Leukocyte Esterase Trace H Urine RBC 0-2 Urine WBC 0-5 Ur Squamous Epith Cells 0-2 Urine Bacteria None Seen Hyaline Casts 0-2 Urine Test NEGATIVE Assessment and Plan (1) Acute pancreatitis: Status: Acute Plan This is a 49-year-old female with history of rectal cancer status post colostomy, chemo and radiation, recent resection of duodenal mass at [facility] on March 27 who presents to the emergency department with abdominal pain found to have pancreatitis Acute pancreatitis Does not drink alcohol, TG level 85 LFTs elevated in obstructive pattern and does have gall stones, but no dilation of CBD or intra/extrahepatic ducts possible medication related (started on omeprazole after EUD), possible stone related or possibly due to edema from recent procedure, although given procedure being 10 days ago and sudden onset of pain this may be less likely trend LFTs - if remain elevated may need to pursue MRCP General surgery consultation GI consultation NPO, IV fluid, pain control hold omeprazole mood continue SSRI and ativan dvt ppx - mechanical devices Quality Stroke Does the patient have a stroke diagnosis?: No VTE Prior VTE?: No VTE Risk Level:: Medical - moderate - high VTE Device Contraindication: N/A - Device Ordered VTE Drug Contraindication: N/A - Med Ordered
[2025-04-08] MEDS: Lactated Ringers 1,000 ML 125 ML IVCONT (17:17)
--- NOTE | 2025-04-08 18:11 | PC.NURSE ---
Pt will be transitioning to ED Overflow unit. Call placed to CELIA Rhoades for RN to RN report. [place] offers no questions at this time and rpeort Pts will be housed in room 1. Awaiting transportation to overflow.
--- NOTE | 2025-04-08 18:31 | P.CONGS_ITS ---
History of Present Illness Consult details Consult date: 04/08/25 Requesting physician: Megha Carballo Narrative: The patient is a 49-year-old female with a past history of rectal cancer status post APR over 10 years ago but overall doing well. She comes in today complaining of epigastric abdominal pain. Here in the emergency room she is tender in the epigastric area and blood work reveals normal white count but elevated LFTs as well as lipase consistent with pancreatitis. Secondary to patient's rectal cancer at a young age she has been followed by GI at [facility] and has undergone multiple upper and lower endoscopies to survey her GI tract for malignancy. Recently an EGD revealed a duodenal lesion and she had a endoscopic ultrasound and biopsies of this. 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 The area was closed with clips. Postoperatively the patient has been doing well and the plan was to follow up with the funeral pre arrangement counselor at [facility] again in about 6 months. However now she comes in with this pain and elevated labs. Patient does have gallstones in her gallbladder but ultrasound does not show distended common bile duct but she does have an enlarged liver and spleen. I am uncertain if any manipulation of her common bile duct pancreatic duct was carried out and her procedure. Now with some pain medication the patient is feeling better. She denies any chest pain shortness of breath. Total Bilirubin 2.8 H AST 709 H ALT 480 H [facility] Past Medical History Medical History Duodenal mass Rectal cancer Meds Allergies Allergy/AdvReac Type Severity Reaction Status Date / Time No Known Allergies Allergy Verified 04/08/25 11:35 Active Medications: Current Medications Acetaminophen (Acetaminophen 325 Mg Tablet) 650 mg PO Q6H PRN PRN Reason: Pain, Mild 1-3,fever,headache Calcium Carbonate (Calcium Carbonate 750 Mg Tab.Chew) 750 mg PO Q4H PRN PRN Reason: Heartburn Enoxaparin Sodium (Enoxaparin Sodium 40 Mg/0.4 Ml Syringe) 40 mg SUBCUT Q24H [facility] Last Admin: 04/08/25 17:17 Dose: 40 mg Lactated Ringer's (Lr) 1,000 mls @ 125 mls/hr IVCONT .Q8H [facility] Last Admin: 04/08/25 17:17 Dose: 125 mls/hr Loratadine (Loratadine 10 Mg Tablet) 10 mg PO BEDTIME [facility] Lorazepam (Lorazepam 0.5 Mg Tablet) 0.5 mg PO TID [facility] Magnesium Hydroxide (Milk Of Magnesia 30 Ml Oral.Susp) 30 ml PO DAILY PRN PRN Reason: Constipation Melatonin (Melatonin 3 Mg Tablet) 6 mg PO BEDTIME PRN PRN Reason: Insomnia Morphine Sulfate (Morphine Sulfate 4 Mg/Ml Cartridge) 2 mg IVPUSH Q4H PRN; Protocol PRN Reason: Pain, Severe (Pain Scale 7-10) Ondansetron HCl (Ondansetron Hcl 4 Mg/2 Ml Vial) 4 mg IVPUSH Q8H PRN PRN Reason: Nausea and Vomiting Sertraline HCl (Sertraline Hcl 100 Mg Tablet) 200 mg PO DAILY [facility] Sodium Chloride (0.9 % Sodium Chloride Flush 3 Ml Syringe) 3 ml IVFLUSH QSHIFT [facility] Home Medications ?Medication ?Instructions ?Recorded ?Confirmed ?Last Taken ?Type cetirizine 10 mg tablet (Zyrtec) 10 mg PO BEDTIME 03/2004/08/25 04/07/25 History lorazepam 0.5 mg tablet 0.5 mg PO TID anxiety 04/08/25 04/08/25 History omeprazole 20 mg capsule,delayed 20 mg PO BID 04/08/25 04/08/25 04/08/25 History release sertraline 100 mg tablet 200 mg PO DAILY 04/08/2504/08/25 History Physical Exam 2 Vital Signs: Vital Signs: Last Vital Signs Temp 98.3 F 04/08/25 18:05 Pulse 75 04/08/25 18:05 Resp 16 04/08/25 18:05 BP 99/59 L 04/08/25 18:05 Pulse Ox 93 04/08/25 18:05 O2 Del Method Room Air 04/08/25 18:05 BMI result Body Mass Index 36.6 Const: General: cooperative, healthy appearing, comfortable and no acute distress Orientation/consciousness: patient oriented x3 Eyes: Other: Nonicteric GI: Other: Abdomen is soft nondistended mild tenderness in the epigastric right upper quadrant but no guarding no rebound no peritoneal signs Neuro: General: patient oriented x3 Extrem: General: Yes normal to inspection Psych: Appearance: grossly normal Mental Status: mental status grossly normal Speech and movement: Normal speech and movement present Affect: n ormal affect Attitude: cooperative Thought process: Normal thought process present Results Labs 04/08/25 12:04 04/08/25 12:04 Labs: Abnormal lab results 04/08/25 04/08/25 Range/Units 12:04 14:29 WBC 3.5 L (4.8-10.8) X10*3/uL MCV 71.3 L (80.0-98.0) fL MCH 23.5 L (27.0-33.0) pg MPV 9.0 L (9.4-12.3) fL Neut % (Auto) 83.6 H (45-73) % Lymph % (Auto) 6.9 L (20-40) % Lymph # (Auto) 0.2 L (1.2-4.9) X10*3/uL BUN 8 L (9-16) mg/dL Total Bilirubin 2.8 H (0.0-1.0) mg/dL AST 709 H (5-31) U/L ALT 480 H (0-31) U/L Alkaline Phosphatase 282 H (39-117) U/L LDL Cholesterol, Calc 104 H (<100) mg/dL Lipase 2540 H (8-78) U/L Ur Leukocyte Esterase Trace H (Negative) Short CBC 04/08/25 Range/Units 12:04 WBC 3.5 L (4.8-10.8) X10*3/uL Hgb 12.2 (12.0-16.0) g/dl Hct 37.1 (37.0-47.0) % Plt Count 167 (160-400) X10*3/uL BMP 04/08/25 12:04 Sodium 141 Potassium 3.8 Chloride 105 Carbon Dioxide 27 BUN 8 L Creatinine 0.60 Calcium 10.0 Liver Function 04/08/25 Range/Units 12:04 Total Bilirubin 2.8 H (0.0-1.0) mg/dL AST 709 H (5-31) U/L ALT 480 H (0-31) U/L Alkaline Phosphatase 282 H (39-117) U/L Albumin 4.9 (3.5-5.0) g/dL Urine 04/08/25 Range/Units 12:04 Urine Color Dark Yellow Urine Appearance Clear Urine pH 5.5 (5.0-9.0) Ur Specific [place] 1.015 (1.005-1.025) Urine Protein Negative (Neg-Trace) mg/dL Urine Glucose (UA) Negative (Negative) mg/dL Urine Test NEGATIVE (NEGATIVE) All other labs normal. Imaging Additional studies: [place] [id number] Ultrasound Report Signed Patient: Shellie Avila MR#: [id number] : 1975 Acct:[id number] Age/Sex: 49 / F ADM Date: 04/08/25 Loc: HO.ED Attending Dr: Ordering Physician: Karrie Pepper NP Date of Service: 04/08/25 Procedure(s): US abdomen limited Accession Number(s): [id number] cc: Karrie Pepper NP; Alyssa Willard PA-C~ Reason for Exam: RUQ pain CLINICAL HISTORY: RUQ pain US abdomen limited Comparison: None provided Findings: The visualized pancreas is normal. Hepatic steatosis. There is no intrahepatic bile duct dilatation. The common duct is 2 mm in diameter. Gallbladder is contracted and filled with stones with [id number] appearance. Wall is top-normal in thickness. There is no sonographic Lee sign. The right kidney is 10.9 cm in length. No ascites. IMPRESSION: Gallbladder is contracted and filled with stones with [id number] appearance. No wall thickening or sonographic Lee's sign. This document has been electronically signed by: Manuela Rodriguez MD on 04/08/2025 14:07:42 Dictated By: Manuela Rodriguez MD Signed By: <Electronically signed by Maneula Rodriguez MD in OV> 04/08/25 1408 DD/ 06 TD/TT: 04/08/251406 Legal Department Manager: [address] [address] [address] Scan Report Signed Patient: Shellie Avila MR#: [id number] : 1975 Acct:[id number] Age/Sex: 49 / F ADM Date: 04/08/25 Loc: HO.ED Attending Dr: Ordering Physician: Syed Lane Date of Service: 04/08/25 Procedure(s): CT abdomen pelvis w IV con Accession Number(s): [id number] cc: Syed Lane; Alyssa Willard PA-C~ Report Number: [id number]: Total DLP = 0.00 mGy-cm Reason for Exam: Abdominal pain s/p duodenum resection? CLINICAL HISTORY: Abdominal pain s p duodenum resection? CT abdomen and pelvis with contrast Comparison: US - US ABDOMEN LIMITED - 04/08/25 13:24 EDT Findings: No consolidation or effusion. Hepatic steatosis. Hepatomegaly measuring 23.5 cm in the craniocaudal dimension. Gallbladder is filled with stones. No distention or biliary duct dilatation. Splenomegaly measuring 16.7 cm in the AP dimension. There is a small accessory splenule. Pancreas and adrenal glands are within normal limits. No hydronephrosis. Symmetric contrast enhancement of the kidneys. Left lower quadrant colostomy. No bowel obstruction, pneumatosis or pneumoperitoneum. No bowel wall thickening. Atrophic uterus. Urinary bladder is within normal limits. No acute fracture. IMPRESSION: 1. Hepatic steatosis with hepatosplenomegaly. 2. Cholelithiasis without gallbladder distention or biliary duct dilatation. 3. Left lower quadrant colostomy. No acute findings of the bowel. 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 Question etiology. Her common bile duct does not look enlarged although she does have choledocholithiasis. Question whether there maybe some edema swelling of the ampulla secondary to this procedure which was in the 1st 2nd portion of the duodenum. There is no free air or significant inflammatory findings on CAT scan. Her abdominal exam is relatively benign. She is not ill-appearing. Plan is to admit treat for pancreatitis NPO IV fluid resuscitation re-evaluate with repeat labs in the morning. We can discuss with her team at [facility] what their thoughts are. Patient may have some biliary disease but at this point there is no need for any emergent surgical intervention. This was all discussed with the patient as well as her parents and they understand and agree with the above plan Procedures Date of Service Date of Service: 04/08/25
--- NOTE | 2025-04-08 18:48 | PC.NURSE ---
Addendum entered by Ashlyn Murphy RN 04/08/25 18:49: Patient is a 49-year-old female with a past history of rectal cancer status post APR over 10 years ago. She comes in today complaining of epigastric abdominal pain. Normal white count but elevated LFTs as well as lipase consistent with pancreatitis. Secondary to patient's rectal cancer at a young age she has been followed by GI at [facility] and has undergone multiple upper and lower endoscopies to survey her GI tract for malignancy. Recently an EGD revealed a duodenal lesion and she had a endoscopic ultrasound and biopsies of this. On March 28 she was treated at [facility] by an interventional residential program worker who did an endoscopic mucosal resection complete of this lesion which turned out to be a tubular adenoma. The area was closed with clips. However now she comes in with this pain and elevated labs. Patient does have gallstones in her gallbladder but ultrasound does not show distended common bile duct but she does have an enlarged liver and spleen. Patient alert and oriented. Lungs clear bilat. Respirations even and non-labored. Abdomen soft, with positive bowel sounds. Denies any pain at this time. Positive pedal pulses with no edema. Original Note: Medical History Duodenal mass Rectal cancer
--- NOTE | 2025-04-08 22:50 | PC.NURSE ---
Report in place. Pt is going to [facility] 358. waiting for new RN to read report- transport/tech to transport pt.
[2025-04-09 00:10] VITALS: BP 123/69; PULSE 62; RESP 18; TEMP 35.8; O2SAT 94
[2025-04-09 00:14] VITALS: BMI 37.9
[2025-04-09] MEDS: Lactated Ringers 1,000 ML 125 ML IVCONT ×2 (00:42→09:41)
[2025-04-09 03:36] VITALS: BP 110/59; PULSE 65; RESP 18; TEMP 36.9; O2SAT 93
[2025-04-09 06:15] LABS: Hematocrit 30.8 % (37.0-47.0); Hemoglobin 9.9 g/dl (12.0-16.0); Imm Gran Abs Auto 0.01 X10*3/uL (0.00-0.03); Imm Gran Pct Auto 0.5 % (0.0-0.4); Lymphocytes Absolute Auto 0.2 X10*3/uL (1.2-4.9); MANUAL DIFF FLAG SCAN; Mean Corpuscular HGB Conc 32.1 g/dl (31.0-35.0); Mean Corpuscular Hemoglobin 23.2 pg (27.0-33.0); Mean Corpuscular Volume 72.3 fL (80.0-98.0); NRBC Abs Auto 0.000 X10*3/uL (0.0-0.012); NRBC Pct Auto 0.0 /100WBC (0.0-0.2); Platelet Count 127 X10*3/uL (160-400); Red Blood Count 4.26 X10*6/uL (4.20-5.50); SCAN SMEAR FLAG 1
[2025-04-09 06:16] LABS: White Blood Count 1.9 X10*3/uL (4.8-10.8)
[2025-04-09 06:31] LABS: Alanine Aminotransferase 332 U/L (0-31); Albumin Level 3.9 g/dL (3.5-5.0); Alkaline Phosphatase 243 U/L (39-117); Anion Gap 11 (12-20); Aspartate Amino Transferase 218 U/L (5-31); Blood Urea Nitrogen 6 mg/dL (9-16); Calcium 8.9 mg/dL (8.4-10.2); Carbon Dioxide 29 mmol/L (22-29); Chloride 107 mmol/L (96-108); Creatinine Clr Calc Pharmacy 158.9; Estimated Glomerular Filt Rate > 60; Lipase 60 U/L (8-78); Potassium 3.8 mmol/L (3.3-5.1); Sodium 143 mmol/L (135-145); Total Protein 6.4 g/dL (6.5-8.0)
--- NOTE | 2025-04-09 07:12 | P.CNGI_ITS ---
History of Present Illness Data of Consult Service Date: 04/09/25 Requesting physician: Megha Carballo Primary Care Provider: GILBERTO oMra Reason for consult: pancreatitis; recent resection of duodenal mass 49 YF with history of rectal cancer, s/p 2 submucosal lesion removed from a duodenum came to [facility] on 04/08/25 with 2 day hx of abdominal pain. Patient reports she developed 7/10 epigastric abdominal pain with radiation through to her back which felt like burning in nature at 01:00 am on 04/07/25 She notes nausea and denies vomiting, fever or chills. Patient notes she had endoscopic submucosal dissection of a 3.5 cms polyp in the 2nd part of duodenum (tubular adenoma on bx) at [facility] on March 28. The area was closed with clips. Postoperatively the patient has been doing well and the plan was to follow up with the agricultural engineering teacher at [facility] again in about 6 months. She denies having any pain following the procedure and was able to tolerate diet starting 2 days after the procedure. Pt denies past hx of pancreatitis. She recalls being informed that she had gallstones on a CT scan 14 yrs ago Patient denies smoking or ETOH use. She was diagnosed with rectal cancer several years ago. She was treated at [facility] with preoperative chemo and radiation therapy followed by resection with sigmoid colostomy She subsequently had chemotherapy postoperatively. Labs in the ED showed lipase was 2540, AST 709, ALT 480. 04/08/[address] SCAN SHOWED: 1. Hepatic steatosis with hepatosplenomegaly. 2. Cholelithiasis without gallbladder distention or biliary duct dilatation. 3. Left lower quadrant colostomy. No acute findings of the bowel. 04/08/25 ABD US SHOWED: Gallbladder is contracted and filled with stones with [id number]-[id number] appearance. No wall thickening or sonographic Lee's sign. Review of Systems 2 Review of Systems: Yes all other systems are reviewed and are negative Constitutional: Constitutional: Denies chills and Denies fever(s) Cardiovascular: Cardiovascular: Denies chest pain, Denies palpitations and Denies dyspnea Respiratory: Respiratory: Denies cough and Denies dyspnea Gastrointestinal: Gastrointestinal: Reports abdominal pain, Reports nausea and Denies vomiting Endocrine: Endocrine: Denies palpitations PMFSH Past Medical History Medical History Duodenal mass Rectal cancer Social History Social History Household Members: Family Housing: House Do you presently have visiting nurse or other home services: No Patient Tobacco Use Status: Never used Tobacco Meds Allergies Allergy/AdvReac Type Severity Reaction Status Date / Time No Known Allergies Allergy Verified 04/08/25 11:35 Active Medications: Current Medications Acetaminophen (Acetaminophen 325 Mg Tablet) 650 mg PO Q6H PRN PRN Reason: Pain, Mild 1-3,fever,headache Last Admin: 04/08/25 20:39 Dose: 650 mg Calcium Carbonate (Calcium Carbonate 750 Mg Tab.Chew) 750 mg PO Q4H PRN PRN Reason: Heartburn Enoxaparin Sodium (Enoxaparin Sodium 40 Mg/0.4 Ml Syringe) 40 mg SUBCUT Q24H [facility] Last Admin: 04/08/25 17:17 Dose: 40 mg Lactated Ringer's (Lr) 1,000 mls @ 125 mls/hr IVCONT .Q8H [facility] Last Admin: 04/09/25 00:42 Dose: 125 mls/hr Loratadine (Loratadine 10 Mg Tablet) 10 mg PO BEDTIME [facility] Last Admin: 04/08/25 20:44 Dose: Not Given Lorazepam (Lorazepam 0.5 Mg Tablet) 0.5 mg PO TID [facility] Last Admin: 04/08/25 20:44 Dose: Not Given Magnesium Hydroxide (Milk Of Magnesia 30 Ml Oral.Susp) 30 ml PO DAILY PRN PRN Reason: Constipation Melatonin (Melatonin 3 Mg Tablet) 6 mg PO BEDTIME PRN PRN Reason: Insomnia Morphine Sulfate (Morphine Sulfate 4 Mg/Ml Cartridge) 2 mg IVPUSH Q4H PRN; Protocol PRN Reason: Pain, Severe (Pain Scale 7-10) Ondansetron HCl (Ondansetron Hcl 4 Mg/2 Ml Vial) 4 mg IVPUSH Q8H PRN PRN Reason: Nausea and Vomiting Sertraline HCl (Sertraline Hcl 100 Mg Tablet) 200 mg PO DAILY [facility] Sodium Chloride (0.9 % Sodium Chloride Flush 3 Ml Syringe) 3 ml IVFLUSH QSHIFT [facility] Last Admin: 04/09/25 00:36 Dose: Not Given Home Medications ?Medication ?Instructions ?Recorded ?Confirmed ?Last Taken ?Type cetirizine 10 mg tablet (Zyrtec) 10 mg PO BEDTIME 03/2004/08/25 04/07/25 History lorazepam 0.5 mg tablet 0.5 mg PO TID anxiety 04/08/25 04/08/25 History omeprazole 20 mg capsule,delayed 20 mg PO BID 04/08/25 04/08/25 04/08/25 History release sertraline 100 mg tablet 200 mg PO DAILY 04/08/2504/08/25 History Physical Exam 2 Vital Signs: Vital Signs: Last Vital Signs Temp 98.5 F 04/09/25 03:36 Pulse 65 04/09/25 03:36 Resp 18 04/09/25 03:36 BP 110/59 L 04/09/25 03:36 Pulse Ox 93 04/09/25 03:36 O2 Del Method Room Air 04/09/25 03:36 BMI result Body Mass Index 37.9 Const: General: healthy appearing and no acute distress Nutritional Appearance: obese Orientation/consciousness: patient oriented x3 L imitations: no limitations HEENT: Head: Yes normal to inspection Ears: hearing grossly normal bilaterally Eyes: Sclerae: sclerae normal Pupils: Equal, round and reactive pupils present Neck: Neck: Yes normal visual inspection Chest: Chest palpation & inspection: normal inspection of the chest Resp: Effort & Inspection: normal respiratory effort Auscultation: clear to auscultation bilaterally Cardio: Palpation: normal PMI Rate: regular rate Rhythm: regular rhythm Heart sounds: S1 normal heart sound present, S2 normal heart sound present and no murmurs GI: Inspection: Yes other (Colostomy in LLQ) Palpation (GI): Soft to palpation, Tenderness to palpation present (GI) (Mild epigastric and right upper quadrant tenderness) and No hepatosplenomegaly present Auscultation: normal bowel sounds Rectal Exam - Female: deferred Skin: General skin exam: no rashes or lesions noted Neuro: General: patient oriented x3, gait normal and moves all extremities Cranial nerves: Yes Equal, round and reactive pupils present Psych: Appearance: grossly normal Mental Status: mental status grossly normal Results Labs 04/09/25 05:53 04/09/25 05:53 Labs: Short CBC 04/08/25 04/09/25 Range/Units 12:04 05:53 WBC 3.5 L 1.9 L (4.8-10.8) X10*3/uL Hgb 12.2 9.9 L (12.0-16.0) g/dl Hct 37.1 30.8 L (37.0-47.0) % Plt Count 167 127 L (160-400) X10*3/uL BMP 04/08/25 04/09/25 12:04 05:53 Sodium 141 143 Potassium 3.8 3.8 Chloride 105 107 Carbon Dioxide 27 29 BUN 8 L 6 L Creatinine 0.60 0.54 Calcium 10.0 8.9 D Liver Function 04/08/25 04/09/25 Range/Units 12:04 05:53 Total Bilirubin 2.8 H 1.3 H (0.0-1.0) mg/dL Direct Bilirubin 0.5 (0.0-0.5) mg/dL AST 709 H 218 H (5-31) U/L ALT 480 H 332 H (0-31) U/L Alkaline Phosphatase 282 H 243 H (39-117) U/L Albumin 4.9 3.9 (3.5-5.0) g/dL Urine 04/08/25 Range/Units 12:04 Urine Color Dark Yellow Urine Appearance Clear Urine pH 5.5 (5.0-9.0) Ur Specific [place] 1.015 (1.005-1.025) Urine Protein Negative (Neg-Trace) mg/dL Urine Glucose (UA) Negative (Negative) mg/dL Assessment and Plan (1) Acute pancreatitis: Status: Acute Plan 49 YF with history of rectal cancer, s/p 2 submucosal lesion removed from a duodenum came to [facility] ED on 04/08/25 with 2 day hx of abdominal pain. Patient notes she had endoscopic submucosal dissection of a 3.5 cms polyp in the 2nd part of duodenum (tubular adenoma on bx) at [facility] on March 28. The area was closed with clips. Postoperatively the patient has been doing well and the plan was to follow up with the agricultural engineering teacher at [facility] again in about 6 months. Pt denies past hx of pancreatitis. Patient denies smoking or ETOH use. Labs in the ED showed lipase was 2540, AST 709, ALT 480. FU labs show improvement in LFTs Acute pancreatitis possibly related to submucosal resection of a large tubular adenoma causing ampullary edema versus biliary pancreatitis from passage of gallstone or sludge RECOMMENDATIONS: 1. Agree with IV pain medications, anti-emetics 2. MRCP to rule out CBD stone Procedures Date of Service Date of Service: 04/09/25
[2025-04-09 07:17] VITALS: BP 110/61; PULSE 61; RESP 12; TEMP 36.7; O2SAT 94
[2025-04-09 07:25] LABS: Hemoglobin A1C 121.1224 umol/L; Total Hemoglobin (HGBA1C) 3134.5371 umol/L
--- NOTE | 2025-04-09 07:58 | PM.PNGS ---
Subjective Subjective Date of Service: 04/09/25 <Sunil El PA-C - Last Filed: 04/09/25 08:13> 04/09/25 <Norris Davenport MD - Last Filed: 04/09/25 16:23> Interval history: feels much improved. minimal pain. ambulating to bathroom, tolerating well. Remains NPO <Sunil El PA-C - Last Filed: 04/09/25 08:13> Physical Exam Vital Signs: Vital Signs: Last Vital Signs Temp 98.1 F 04/09/25 07:17 Pulse 61 04/09/25 07:17 Resp 12 04/09/25 07:17 BP 110/61 04/09/25 07:17 Pulse Ox 94 04/09/25 07:17 O2 Del Method Room Air 04/09/25 07:17 BMI result Body Mass Index 37.9 <Sunil El PA-C - Last Filed: 04/09/25 08:13> Const: General: comfortable and no acute distress <Sunil El PA-C - Last Filed: 04/09/25 08:13> Orientation/consciousness: patient oriented x3 <Sunil El PA-C - Last Filed: 04/09/25 08:13> Resp: Effort & Inspection: normal respiratory effort and able to speak in complete sentences <Sunil El PA-C - Last Filed: 04/09/25 08:13> GI: Inspection: No distended <Sunil El PA-C - Last Filed: 04/09/25 08:13> Palpation (GI): Soft to palpation, Tenderness to palpation present (GI) (mildly tender in epigastric area) and no guarding <Sunil El PA-C - Last Filed: 04/09/25 08:13> Neuro: General: patient oriented x3 <GILBERTO Salazar Last Filed: 04/09/25 08:13> Objective Data Active Medications Acetaminophen (Acetaminophen 325 Mg Tablet) 650 mg PO Q6H PRN PRN Reason: Pain, Mild 1-3,fever,headache Last Admin: 04/08/25 20:39 Dose: 650 mg Documented By: DALTON Calcium Carbonate (Calcium Carbonate 750 Mg Tab.Chew) 750 mg PO Q4H PRN PRN Reason: Heartburn Enoxaparin Sodium (Enoxaparin Sodium 40 Mg/0.4 Ml Syringe) 40 mg SUBCUT Q24H [facility] Last Admin: 04/08/25 17:17 Dose: 40 mg Documented By: DARREN Lactated Ringer's (Lr) 1,000 mls @ 125 mls/hr IVCONT .Q8H [facility] Last Admin: 04/09/25 00:42 Dose: 125 mls/hr Documented By: SALIMA Loratadine (Loratadine 10 Mg Tablet) 10 mg PO BEDTIME [facility] Last Admin: 04/08/25 20:44 Dose: Not Given Documented By: DALTON Non-Admin Reason: Patient Refused Lorazepam (Lorazepam 0.5 Mg Tablet) 0.5 mg PO TID [facility] Last Admin: 04/08/25 20:44 Dose: Not Given Documented By: DALTON Non-Admin Reason: Patient Refused Magnesium Hydroxide (Milk Of Magnesia 30 Ml Oral.Susp) 30 ml PO DAILY PRN PRN Reason: Constipation Melatonin (Melatonin 3 Mg Tablet) 6 mg PO BEDTIME PRN PRN Reason: Insomnia Morphine Sulfate (Morphine Sulfate 4 Mg/Ml Cartridge) 2 mg IVPUSH Q4H PRN; Protocol PRN Reason: Pain, Severe (Pain Scale 7-10) Ondansetron HCl (Ondansetron Hcl 4 Mg/2 Ml Vial) 4 mg IVPUSH Q8H PRN PRN Reason: Nausea and Vomiting Sertraline HCl (Sertraline Hcl 100 Mg Tablet) 200 mg PO DAILY [facility] Sodium Chloride (0.9 % Sodium Chloride Flush 3 Ml Syringe) 3 ml IVFLUSH QSHIFT [facility] Last Admin: 04/09/25 00:36 Dose: Not Given Documented By: SALIMA Non-Admin Reason: IV Running <Sunil El PA-C - Last Filed: 04/09/25 08:13> Labs CBC & Chem 7: 04/09/25 05:53 04/09/25 05:53 <Sunil El PA-C - Last Filed: 04/09/25 08:13> Labs: Laboratory Results - last 24 hr 04/08/25 04/08/25 04/08/25 12:04 12:09 14:29 MCV 71.3 L MCH 23.5 L MCHC 32.9 RDW 15.6 Plt Count 167 MPV 9.0 L Immature Gran % (Auto) 0.3 Neut % (Auto) 83.6 H Lymph % (Auto) 6.9 L [place] % (Auto) 7.2 Eos % (Auto) 1.4 Baso % (Auto) 0.6 Lymph # (Auto) 0.2 L [place] # (Auto) 0.3 Eos # (Auto) 0.1 Baso # (Auto) 0.0 Abs Immat Gran (auto) 0.01 Absolute Neuts (auto) 2.9 Absolute Nucleated RBC 0.000 Nucleated RBC % (auto) 0.0 Smear Tech's Comments PT 11.6 INR 1.0 Anion Gap 13 Estim Creat Clear Calc 140.4 Estimated GFR > 60 Random Glucose 95 Estimat Average Glucose 117 Hemoglobin A1c % 5.7 Lactic Acid 1.0 Calcium 10.0 Magnesium 2.1 Total Bilirubin 2.8 H Direct Bilirubin AST 709 H ALT 480 H Alkaline Phosphatase 282 H Total Protein 7.9 Albumin 4.9 Triglycerides 85 Cholesterol 167 LDL Cholesterol, Calc 104 H HDL Cholesterol 46 Lipase 2540 H Urine Color Dark Yellow Urine Appearance Clear Urine pH 5.5 Ur Specific [place] 1.015 Urine Protein Negative Urine Glucose (UA) Negative Urine Ketones Negative Urine Blood Negative Urine Nitrite Negative Ur Leukocyte Esterase Trace H Urine RBC 0-2 Urine WBC 0-5 Ur Squamous Epith Cells 0-2 Urine Bacteria None Seen Hyaline Casts 0-2 Urine Test NEGATIVE 04/09/25 05:53 MCV 72.3 L MCH 23.2 L MCHC 32.1 RDW 15.8 Plt Count 127 L MPV 9.2 L Immature Gran % (Auto) 0.5 H Neut % (Auto) 76.8 H Lymph % (Auto) 11.6 L [place] % (Auto) 7.4 Eos % (Auto) 3.2 Baso % (Auto) 0.5 Lymph # (Auto) 0.2 L [place] # (Auto) 0.1 Eos # (Auto) 0.1 Baso # (Auto) 0.0 Abs Immat Gran (auto) 0.01 Absolute Neuts (auto) 1.5 L Absolute Nucleated RBC 0.000 Nucleated RBC % (auto) 0.0 Smear Tech's Comments VERIFIED PT INR Anion Gap 11 L Estim Creat Clear Calc 158.9 Estimated GFR > 60 Random Glucose 87 Estimat Average Glucose Hemoglobin A1c % Lactic Acid Calcium 8.9 D Magnesium Total Bilirubin 1.3 H Direct Bilirubin 0.5 AST 218 H ALT 332 H Alkaline Phosphatase 243 H Total Protein 6.4 L Albumin 3.9 Triglycerides Cholesterol LDL Cholesterol, Calc HDL Cholesterol Lipase 60 Urine Color Urine Appearance Urine pH Ur Specific [place] Urine Protein Urine Glucose (UA) Urine Ketones Urine Blood Urine Nitrite Ur Leukocyte Esterase Urine RBC Urine WBC Ur Squamous Epith Cells Urine Bacteria Hyaline Casts Urine Test <Sunil El PA-C - Last Filed: 04/09/25 08:13> Procedures Date of Service Date of Service: 04/09/25 <Sunil El PA-C - Last Filed: 04/09/25 08:13> 04/09/25 <Norris Davenport MD - Last Filed: 04/09/25 16:23> Progress Note: A&P Assessment and plan (1) Acute pancreatitis: Status: Acute <Sunil El PA-C - Last Filed: 04/09/25 08:13> Assessment and Plan: 49 year old female history of rectal cancer status post colostomy, chemo and radiation, recent resection of duodenal mass at [facility] on March 27, admitted for management of pancreatitis. She reports she is feeling improved this morning. abdominal pain minimla at rest, she is ambulating. Lipase 60 today, AST/ALT and bilirubin trending down. WBC this morning 1.9. Abdominal exam soft, mildly tender in the epigastric area. She appears well. No plan for surgical intervention, she does has gallstones, no dilation of CBD, liver enzymes trending down. continue to trend liver enzymes likely okay to have clear liquid diet ambulation as tolerated will continue to follow <Sunil El PA-C - Last Filed: 04/09/25 08:13> 49 year old female history of rectal cancer status post colostomy, chemo and radiation, recent resection of duodenal mass at [facility] on March 27, admitted for management of pancreatitis. She reports she is feeling improved this morning. abdominal pain minimla at rest, she is ambulating. Lipase 60 today, AST/ALT and bilirubin trending down. WBC this morning 1.9. Abdominal exam soft, mildly tender in the epigastric area. She appears well. No plan for surgical intervention, she does has gallstones, no dilation of CBD, liver enzymes trending down. continue to trend liver enzymes likely okay to have clear liquid diet ambulation as tolerated will continue to follow 04/09/25 8:13 am EDT - Sunil El Patient seen and examined and I agree with the above assessment and plan. Patient is much improved and laboratories are normalizing. Recommend further management of the gallbladder by the primary team at [facility] given her recent duodenal surgery. <Norris Davenport MD - Last Filed: 04/09/25 16:23> Time Spent With Patient Time: Total time managing care of this patient today ____ minutes. <Sunil El PA-C - Last Filed: 04/09/25 08:13> Quality Stroke Does the patient have a stroke diagnosis?: No <Sunil El PA-C - Last Filed: 04/09/25 08:13> VTE Prior VTE?: No <Sunil El PA-C - Last Filed: 04/09/25 08:13> VTE Risk Level:: Medical - moderate - high <Sunil El PA-C - Last Filed: 04/09/25 08:13> VTE Device Contraindication: N/A - Device Ordered <Sunil El PA-C - Last Filed: 04/09/25 08:13> VTE Drug Contraindication: N/A - Med Ordered <Sunil El PA-C - Last Filed: 04/09/25 08:13>
--- NOTE | 2025-04-09 11:48 | P.PNIM_ITS ---
Subjective Subjective Date of Service: 04/09/25 Review of Systems Follow up abd pain but better today No nausea or vomiting Plan for MRCP today Physical Exam 2 Exam: Exam: Appearing in no acute distress head is normocephalic atraumatic eyes pupils are PERRLA sclera is anicteric mouth throat mucous membranes are intact and moist neck is supple no lymphadenopathy, no JVD noted lung sounds are clear to auscultation heart regular rate rhythm, clear S1, S2 positive bowel sounds, abdomen is soft, nontender neuro patient is alert x3, no focal deficits Vital Signs: Vital Signs: Last Vital Signs Temp 98.1 F 04/09/25 07:17 Pulse 61 04/09/25 07:17 Resp 12 04/09/25 07:17 BP 110/61 04/09/25 07:17 Pulse Ox 94 04/09/25 07:17 O2 Del Method Room Air 04/09/25 07:17 BMI result Body Mass Index 37.9 Objective Data Active Medications Acetaminophen (Acetaminophen 325 Mg Tablet) 650 mg PO Q6H PRN PRN Reason: Pain, Mild 1-3,fever,headache Last Admin: 04/08/25 20:39 Dose: 650 mg Documented By: DALTON Calcium Carbonate (Calcium Carbonate 750 Mg Tab.Chew) 750 mg PO Q4H PRN PRN Reason: Heartburn Enoxaparin Sodium (Enoxaparin Sodium 40 Mg/0.4 Ml Syringe) 40 mg SUBCUT Q24H [facility] Last Admin: 04/08/25 17:17 Dose: 40 mg Documented By: DARREN Lactated Ringer's (Lr) 1,000 mls @ 125 mls/hr IVCONT .Q8H [facility] Last Admin: 04/09/25 09:41 Dose: 125 mls/hr Documented By: MYRA Loratadine (Loratadine 10 Mg Tablet) 10 mg PO BEDTIME [facility] Last Admin: 04/08/25 20:44 Dose: Not Given Documented By: DALTON Non-Admin Reason: Patient Refused Lorazepam (Lorazepam 0.5 Mg Tablet) 0.5 mg PO TID [facility] Last Admin: 04/09/25 08:55 Dose: Not Given Documented By: MYRA Non-Admin Reason: Patient Refused Magnesium Hydroxide (Milk Of Magnesia 30 Ml Oral.Susp) 30 ml PO DAILY PRN PRN Reason: Constipation Melatonin (Melatonin 3 Mg Tablet) 6 mg PO BEDTIME PRN PRN Reason: Insomnia Morphine Sulfate (Morphine Sulfate 4 Mg/Ml Cartridge) 2 mg IVPUSH Q4H PRN; Protocol PRN Reason: Pain, Severe (Pain Scale 7-10) Ondansetron HCl (Ondansetron Hcl 4 Mg/2 Ml Vial) 4 mg IVPUSH Q8H PRN PRN Reason: Nausea and Vomiting Sertraline HCl (Sertraline Hcl 100 Mg Tablet) 200 mg PO DAILY [facility] Last Admin: 04/09/25 08:29 Dose: 200 mg Documented By: MYRA Sodium Chloride (0.9 % Sodium Chloride Flush 3 Ml Syringe) 3 ml IVFLUSH QSHIFT [facility] Last Admin: 04/09/25 08:32 Dose: Not Given Documented By: MYRA Non-Admin Reason: IV Running Labs 04/09/25 05:53 04/09/25 05:53 Labs: Laboratory Results - last 24 hr 04/08/25 04/08/25 04/08/25 12:04 12:09 14:29 MCV 71.3 L MCH 23.5 L MCHC 32.9 RDW 15.6 Plt Count 167 MPV 9.0 L Immature Gran % (Auto) 0.3 Neut % (Auto) 83.6 H Lymph % (Auto) 6.9 L [place] % (Auto) 7.2 Eos % (Auto) 1.4 Baso % (Auto) 0.6 Lymph # (Auto) 0.2 L [place] # (Auto) 0.3 Eos # (Auto) 0.1 Baso # (Auto) 0.0 Abs Immat Gran (auto) 0.01 Absolute Neuts (auto) 2.9 Absolute Nucleated RBC 0.000 Nucleated RBC % (auto) 0.0 Smear Tech's Comments Smear Path Review PT 11.6 INR 1.0 Anion Gap 13 Estim Creat Clear Calc 140.4 Estimated GFR > 60 Random Glucose 95 Estimat Average Glucose 117 Hemoglobin A1c % 5.7 Lactic Acid 1.0 Calcium 10.0 Magnesium 2.1 Total Bilirubin 2.8 H Direct Bilirubin AST 709 H ALT 480 H Alkaline Phosphatase 282 H Total Protein 7.9 Albumin 4.9 Triglycerides 85 Cholesterol 167 LDL Cholesterol, Calc 104 H HDL Cholesterol 46 Lipase 2540 H Urine Color Dark Yellow Urine Appearance Clear Urine pH 5.5 Ur Specific [place] 1.015 Urine Protein Negative Urine Glucose (UA) Negative Urine Ketones Negative Urine Blood Negative Urine Nitrite Negative Ur Leukocyte Esterase Trace H Urine RBC 0-2 Urine WBC 0-5 Ur Squamous Epith Cells 0-2 Urine Bacteria None Seen Hyaline Casts 0-2 Urine Test NEGATIVE 04/09/25 05:53 MCV 72.3 L MCH 23.2 L MCHC 32.1 RDW 15.8 Plt Count 127 L MPV 9.2 L Immature Gran % (Auto) 0.5 H Neut % (Auto) 76.8 H Lymph % (Auto) 11.6 L [place] % (Auto) 7.4 Eos % (Auto) 3.2 Baso % (Auto) 0.5 Lymph # (Auto) 0.2 L [place] # (Auto) 0.1 Eos # (Auto) 0.1 Baso # (Auto) 0.0 Abs Immat Gran (auto) 0.01 Absolute Neuts (auto) 1.5 L Absolute Nucleated RBC 0.000 Nucleated RBC % (auto) 0.0 Smear Tech's Comments VERIFIED Smear Path Review SEE NOTE PT INR Anion Gap 11 L Estim Creat Clear Calc 158.9 Estimated GFR > 60 Random Glucose 87 Estimat Average Glucose Hemoglobin A1c % Lactic Acid Calcium 8.9 D Magnesium Total Bilirubin 1.3 H Direct Bilirubin 0.5 AST 218 H ALT 332 H Alkaline Phosphatase 243 H Total Protein 6.4 L Albumin 3.9 Triglycerides Cholesterol LDL Cholesterol, Calc HDL Cholesterol Lipase 60 Urine Color Urine Appearance Urine pH Ur Specific [place] Urine Protein Urine Glucose (UA) Urine Ketones Urine Blood Urine Nitrite Ur Leukocyte Esterase Urine RBC Urine WBC Ur Squamous Epith Cells Urine Bacteria Hyaline Casts Urine Test Assessment and Plan (1) Acute pancreatitis: Status: Acute Plan 49-year-old female with history of rectal cancer status post colostomy, chemo and radiation, recent resection of duodenal mass at [facility] on March 27 who presents to the emergency department with abdominal pain found to have pancreatitis Acute pancreatitis Does not drink alcohol, TG level 85 Lipase 2540>60 LFTs elevated in obstructive pattern and does have gall stones, but no dilation of CBD or intra/extrahepatic ducts possible medication related (started on omeprazole after EUD), possible stone related or possibly due to edema from recent procedure, although given procedure being >10 days ago and sudden onset of pain this may be less likely 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
[2025-04-09 16:00] VITALS: BP 143/82; PULSE 71; RESP 19; TEMP 36.6; O2SAT 93
--- NOTE | 2025-04-09 16:23 | MHC.CM.PN ---
CM ATTEMPTED TO MEET WITH PT WHO WAS WITH HOSPITALIST JOSE ANGEL TO RETURN
--- NOTE | 2025-04-09 19:09 | P.DS_ITS ---
DS: Providers Provider Date of Service: 04/10/25 Date of admission: 04/08/25 16:36 Date of discharge: 04/10/25 Primary care physician: Alyssa Willard PA-C Consults: 04/08/25 17:42 Consult to Gastroenterology Routine Consulting Provider: Antoine Manuel Reason for consultation: pancreatitis; recent resection of duodenal mass Has provider been notified: No 04/08/25 17:43 Consult to General Surgery [place]ine Consulting [place] [facility] [place] Reason for consultation: pancreatitis; gallstones; recent resection of duodenal mass Has provider been notified: No DS: Diagnosis Discharge Diagnosis (1) Acute pancreatitis: Status: Acute DS: Summary Hospital Course Hospital Course: History and physical as per admitting provider. This is a 49-year-old female who presents to the emergency department with abdominal pain. Patient states that yesterday at 01:00 she started having epigastric abdominal pain with radiation through to her back which felt like burning in nature. She has associated nausea, no vomiting. Patient recently had an endoscopic submucosal dissection of a duodenal mass at [facility] on March 28. She reports no pain following the procedure and was able to tolerate diet starting 2 days after the procedure. Today in the emergency department her lipase was 2540, AST 709, ALT 480. CT scan shows hepatic steatosis with hepatosplen omegaly, cholelithiasis without gallbladder distention. There is no biliary duct dilation. Abdominal ultrasound shows gallbladder which is contracted and filled with stones with no wall thickening or sonographic Lee's sign. The case was discussed with General surgery on-call who did not feel that the gallstones were causing the pancreatitis. 49-year-old woman treated for acute pancreatitis with elevated lipase initially of 2540. Nondrinker, normal triglycerides. The concern was that patient had some sort of obstructive pattern from a gallstone. She was seen and evaluated by General surgery who did not recommend any surgical procedure, she was then seen by Gastroenterology who recommended MRCP which was negative for any acute process. Patient has been treated with IV fluids, pain control. Her lipase had gone down significantly to lower than a normal number. She was monitored and the decision was made to send her home and she was comfortable with that. She does have a history of recent resection of duodenal mass at [facility] on March 27 so she will follow up with her specialists at her scheduled appointments. Mental health. Continue SSRI and lorazepam Time Attestation Discharge Coordination Time (in mins): 46 Quality: Safe Use of Opioids Does Pt have an Active Cancer Diagnosis on the Problem List?: No Quality: Stroke Does the patient have a stroke diagnosis?: No Physical Exam Exam: Exam: Appearing in no acute distress head is normocephalic atraumatic eyes pupils are PERRLA sclera is anicteric mouth throat mucous membranes are intact and moist neck is supple no lymphadenopathy, no JVD noted lung sounds are clear to auscultation heart regular rate rhythm, clear S1, S2 positive bowel sounds, abdomen is soft, nontender neuro patient is alert x3, no focal deficits Vital Signs: Vital Signs: Last Vital Signs Temp 97.8 F 04/09/25 16:00 Pulse 71 04/09/25 16:00 Resp 19 04/09/25 16:00 BP 143/82 H 04/09/25 16:00 Pulse Ox 93 04/09/25 16:00 O2 Del Method Room Air 04/09/25 16:00 BMI result Body Mass Index 37.9 DS: Data Data Completed and Pending Labs on day of discharge: Laboratory Results - last 24 hr 04/08/25 04/09/25 12:09 05:53 WBC 1.9 L RBC 4.26 Hgb 9.9 L Hct 30.8 L MCV 72.3 L MCH 23.2 L MCHC 32.1 RDW 15.8 Plt Count 127 L MPV 9.2 L Immature Gran % (Auto) 0.5 H Neut % (Auto) 76.8 H Lymph % (Auto) 11.6 L [place] % (Auto) 7.4 Eos % (Auto) 3.2 Baso % (Auto) 0.5 Lymph # (Auto) 0.2 L [place] # (Auto) 0.1 Eos # (Auto) 0.1 Baso # (Auto) 0.0 Abs Immat Gran (auto) 0.01 Absolute Neuts (auto) 1.5 L Absolute Nucleated RBC 0.000 Nucleated RBC % (auto) 0.0 Smear Tech's Comments VERIFIED Smear Path Review SEE NOTE Sodium 143 Potassium 3.8 Chloride 107 Carbon Dioxide 29 Anion Gap 11 L BUN 6 L Creatinine 0.54 Estim Creat Clear Calc 158.9 Estimated GFR > 60 Random Glucose 87 Estimat Average Glucose 117 Hemoglobin A1c % 5.7 Calcium 8.9 D Total Bilirubin 1.3 H Direct Bilirubin 0.5 AST 218 H ALT 332 H Alkaline Phosphatase 243 H Total Protein 6.4 L Albumin 3.9 Lipase 60 Discharge Plan Discharge Anticipated Discharge Date/Time: 04/09/25 15:41 Patient Disposition: Home, Self-Care Discharge Diagnosis: Abdominal pain Referrals: Sunil El PA-C [Physician Head Chopper, General Surgery] - 1 Week Alyssa Willard PA-C [Primary Care Provider, Family Practice] - 1 Week Discharge Medications: Continued cetirizine [Zyrtec] 10 mg Tablet 10 mg PO BEDTIME sertraline 100 mg tablet 200 mg PO DAILY lorazepam 0.5 mg tablet 0.5 mg PO TID omeprazole 20 mg capsule,delayed release(DR/EC) 20 mg PO BID Discharge Orders: Discharge Order (Routine); Ordered 04/09/25 Ordered By: Aliyah Flores Diet: Soft diet Activity on Discharge: As tolerated Stand Alone Forms: Patient Portal Discharge page Print Language: Montenegrin Care Plan Goals: follow up with surgical technologist as needed follow up with general surgery to discuss cholecystectomy Health Concerns: abdominal pain secondary to recent surgical procedure Plan of Treatment: follow up with primary care provider as needed take all medications as prescribed Assessment: see discharge summary Discharge Date/Time: 04/09/25 19:36
== END 2025-04-09 19:36 | disposition home or self-care (01) | DRG 282 ==
LOC: HO.ED 15:48 → HO.EDOVER 16:52 → HO.S3 22:41
PROVIDERS: Physician Assistant; Registered Nurse Emergency; Admitting Provider Physician Assistant Medical; Emergency Provider Emergency Medicine; PCP Physician Assistant; Visit Provider Nurse Practitioner Acute Care
DX: K85.90 Acute pancreatitis without necrosis or infection, unspecified (principal); F39 Unspecified mood [affective] disorder; K76.0 Fatty (change of) liver, not elsewhere classified; Z93.3 Colostomy status; Z85.048 Personal history of other malignant neoplasm of rectum, rectosigmoid junction, and anus; Z79.899 Other long term (current) drug therapy
CPT/HCPCS: 36415; 74177; 74181; 76705; 80048; 80053; 80061; 80076; 81001; 81025; 83036; 83605; 83690; 83735; 85025; 85610; 99285; J1171; J1308; J1650; J2405; J7120; Q9967

== ENCOUNTER → 2025-04-08 13:15 | Outpatient (BNV) | payer OTHER, SELFPAY | PROVIDERS: Emergency Provider Emergency Medicine; PCP Physician Assistant; Visit Provider Radiology Diagnostic Radiology | DX: K76.0 Fatty (change of) liver, not elsewhere classified (principal); R16.2 Hepatomegaly with splenomegaly, not elsewhere classified; K80.40 Calculus of bile duct with cholecystitis, unspecified, without obstruction | CPT/HCPCS: 74177; 76705 ==

== ENCOUNTER 2025-04-08 16:36 | Outpatient (BNV) | payer OTHER, SELFPAY | END 2025-04-09 12:03 | PROVIDERS: Admitting Provider Physician Assistant Medical; Emergency Provider Emergency Medicine; PCP Physician Assistant; Visit Provider Radiology Diagnostic Radiology | DX: K80.20 Calculus of gallbladder without cholecystitis without obstruction (principal); K76.0 Fatty (change of) liver, not elsewhere classified; R16.2 Hepatomegaly with splenomegaly, not elsewhere classified | CPT/HCPCS: 74181 ==

== ENCOUNTER → 2025-04-08 16:36 | Outpatient (BNV) | payer OTHER, SELFPAY | PROVIDERS: Admitting Provider Physician Assistant Medical; Emergency Provider Emergency Medicine; PCP Physician Assistant; Visit Provider Surgery | DX: K85.90 Acute pancreatitis without necrosis or infection, unspecified (principal) | CPT/HCPCS: 99222 ==

== ENCOUNTER → 2025-04-08 16:36 | Outpatient (BNV) | payer OTHER, SELFPAY | PROVIDERS: Admitting Provider Physician Assistant Medical; Emergency Provider Emergency Medicine; PCP Physician Assistant; Visit Provider Physician Assistant Medical | DX: K85.90 Acute pancreatitis without necrosis or infection, unspecified (principal) | CPT/HCPCS: 99499 ==